=== PATIENT | male | born 1950 | race Caucasian/White ===

== ENCOUNTER 2016-11-14 19:02 | Emergency (ER) | payer OTHER ==
[~2016-11-14] VITALS: Ht 175.3 cm; Wt 108.3 kg
[~2016-11-14 19:02] MED LIST: ASPIR-LOW81 MG PO; HYDROCHLOROTH12.5 M3 PO; HYDROCODON-ACE1 EAC7 PO; LANTUS 3 M100 UNITS1 SC; LISINOPRIL10 MG PO; LOPRESSOR50 MG PO; METFORMIN HCL500 MG PO; METOPROLOL TART25 MG PO; NOHOMEMEDS; PANTOPRAZOLE SO40 MG PO; PLAVIX75 MG PO; PRAVASTATIN SOD40 MG PO; RESTORIL15 MG PO; TEMAZEPAM15 MG PO; TYLENOL EXTRA500 MG PO; VITAMIN D250000 UNIT PO; [UNRECOGNIZED DRUG - OTHER]
[2016-11-14 19:29] LABS: BASOPHIL COUNT 0.1 K/uL (0-0.1); EOSINOPHIL (%) 2.4 % (0-5); EOSINOPHIL COUNT 0.4 K/uL (0-0.3); HEMATOCRIT 35.8 % (38.0-50.0); IMMATURE GRANULOCYTE (%) 0.2 % (0.0-0.7); IMMATURE GRANULOCYTE COUNT 0.3 K/uL; LYMPHOCYTE COUNT 1.9 K/uL (1.0-2.8); MCHC 32.7 G/DL (30.0-36.0); MCV 82.5 FL (86-99); MEAN PLAT.VOLUME 10.2 uM^3 (9.0-12.4); MONOCYTE (%) 3.6 % (3-12); MONOCYTE COUNT 0.5 K/uL (0-0.8); NEUTROPHIL COUNT 12.3 K/uL (1.8-6.4); PLATELET COUNT 272 K/uL (156-360); RBC DIS.WIDTH-CV 13.9 % (11.8-14.6); RBC DIS.WIDTH-SD 40.7 % (39-53); RED BLOOD COUNT 4.34 M/uL (4.00-5.50); WHITE BLOOD COUNT 15.2 K/uL (4.1-10.2)
[2016-11-14 19:36] LABS: BASE EXCESS 0.8 mEq/L (-3 to +3); CARBOXY HGB 3.2 % (0-5); COMMENTS - BLOOD GASES C+A+; METHEMOGLOBIN 1.4 % (0-1.5); PCO2 43 mm Hg (35-45); PO2 136 mm Hg (80-100); SITE LR; pH 7.39 (7.35-7.45)
[2016-11-14 19:37] LABS: DEVICE 840 VENT; FI02 100 %; MODE SPONT/NIPPV; PEEP 5 CM/H20; PRES. SUPPORT 10 CM/H2O; TOTAL RESP RATE 37 resp/min
[2016-11-14 19:44] LABS: CHLORIDE 106 mEq/L (99-109); POTASSIUM 3.4 mEq/L (3.7-5.4); SODIUM 145 mEq/L (136-147)
[2016-11-14 19:46] LABS: GLUCOSE 184 mg/dL (70-99)
[2016-11-14 19:47] LABS: ANION GAP 16 MEQ/L (2-14)
[2016-11-14 19:48] LABS: TOTAL BILIRUBIN 0.5 mg/dL (0.0-1.0)
[2016-11-14 19:50] LABS: ALKALINE PHOSPHATASE 44 IU/L (3-129); GFR ESTIMATE (CALCULATED) 54 mL/min/
[2016-11-14 19:51] LABS: UREA NITROGEN (BUN) 17 mg/dL (9-23)
[2016-11-14 19:55] LABS: TROP-I INTERPRETATION NEGATIVE; TROPONIN-I 0.01 ng/mL (0.0-0.30)
[2016-11-14] MEDS ORDERED: ERGOCALCIF50000 UNIT PO (20:24)
[2016-11-14] MEDS ORDERED: CATAPRES0.1 MG PO (20:24)
[2016-11-14] MEDS ORDERED: CARDURA4 MG PO (20:25)
[2016-11-14] MEDS ORDERED: TRICOR145 MG PO (20:25)
[2016-11-14] MEDS ORDERED: SINEMET CR 50-1 EACH PO (20:27)
[2016-11-14] MEDS ORDERED: SINEMET 25-1001 EACH PO (20:27)
[2016-11-14] MEDS ORDERED: FISH OIL 1,001000 M2 PO (20:28)
[2016-11-14 23:12] LABS: INFLUENZA A VIRAL ANTIGEN NEGATIVE; INFLUENZA B VIRAL ANTIGEN NEGATIVE
[2016-11-14 23:30] VITALS: BP 127/84
== END 2016-11-15 04:15 | disposition short-term general hospital (02) ==
LOC: EME → EDBD 19:02 → EME 19:02
PROVIDERS: Emergency Medicine
DX: J96.00 Acute respiratory failure, unspecified whether with hypoxia or hypercapnia (principal); I50.9 Heart failure, unspecified; I16.1 Hypertensive emergency; D72.829 Elevated white blood cell count, unspecified; K21.9 Gastro-esophageal reflux disease without esophagitis; I69.998 Other sequelae following unspecified cerebrovascular disease; M62.81 Muscle weakness (generalized); G89.29 Other chronic pain; M54.2 Cervicalgia; E11.9 Type 2 diabetes mellitus without complications; Z79.84 Long term (current) use of oral hypoglycemic drugs; Z79.82 Long term (current) use of aspirin; Z79.4 Long term (current) use of insulin; Z79.02 Long term (current) use of antithrombotics/antiplatelets; F17.200 Nicotine dependence, unspecified, uncomplicated
CPT/HCPCS: 36600; 71010; 80053; 82803; 83605; 83880; 84484; 85025; 87040; 87502; 87801; 93005; 94002; J1940

== ENCOUNTER 2017-04-03 14:59 | Inpatient (IN) | payer OTHER ==
[~2017-04-03] VITALS: Ht 175.3 cm; Wt 96.1 kg
[~2017-04-03 14:59] MED LIST changes: +CARDURA4 MG PO; +CATAPRES0.1 MG PO; +ERGOCALCIF50000 UNIT PO; +FISH OIL 1,001000 M2 PO; +SINEMET 25-1001 EACH PO; +SINEMET CR 50-1 EACH PO; +TRICOR145 MG PO
[2017-04-03 16:04] LABS: BASOPHIL COUNT 0.1 K/uL (0-0.1); EOSINOPHIL (%) 1.1 % (0-5); EOSINOPHIL COUNT 0.2 K/uL (0-0.3); HEMATOCRIT 31.3 % (38.0-50.0); IMMATURE GRANULOCYTE (%) 0.5 % (0.0-0.7); IMMATURE GRANULOCYTE COUNT 0.1 K/uL; INSTRUMENT ABS NEUTROPHIL CT 15.8 K/uL; LYMPHOCYTE COUNT 1.6 K/uL (1.0-2.8); MCH 26.5 PG (29.0-34.0); MCHC 32.9 G/DL (30.0-36.0); MCV 80.5 FL (86-99); MEAN PLAT.VOLUME 9.5 uM^3 (9.0-12.4); MONOCYTE (%) 6.6 % (3-12); MONOCYTE COUNT 1.3 K/uL (0-0.8); NEUTROPHIL (%) 82.8 % (45-76); NEUTROPHIL COUNT 15.8 K/uL (1.8-6.4); PLATELET COUNT 290 K/uL (156-360); RBC DIS.WIDTH-CV 13.8 % (11.8-14.6); RBC DIS.WIDTH-SD 40.3 % (39-53); RED BLOOD COUNT 3.89 M/uL (4.00-5.50)
[2017-04-03 16:13] LABS: INTER. NORMALIZED RATIO 1.1; PTT 30.5 (25-32)
[2017-04-03 16:14] LABS: CHLORIDE 103 mEq/L (99-109); POTASSIUM 3.8 mEq/L (3.7-5.4); SODIUM 134 mEq/L (136-147)
[2017-04-03 16:15] LABS: MAGNESIUM 1.5 mg/dL (1.3-2.7)
[2017-04-03 16:16] LABS: GLUCOSE 139 mg/dL (70-99)
[2017-04-03 16:18] LABS: ANION GAP 7 MEQ/L (2-14)
[2017-04-03 16:20] LABS: GFR ESTIMATE (CALCULATED) > 59 mL/min/
[2017-04-03 16:21] LABS: UREA NITROGEN (BUN) 17 mg/dL (9-23)
[2017-04-03 16:24] LABS: TROP-I INTERPRETATION NEGATIVE; TROPONIN-I 0.02 ng/mL (0.0-0.30)
[2017-04-03 17:30] LABS: ADD MIUA? YES; BILIRUBIN NEGATIVE; BLOOD LARGE; COLOR YELLOW ((YELLOW)); GLUCOSE (STRIP) 50; KETONES 5; LEUKOCYTES LARGE; NITRITE NEGATIVE; PROTEIN (STRIP) 30; SPECIFIC GRAVITY 1.013 (1.000-1.030); UROBILINOGEN 0.2 MG/DL (0.2-1.0)
[2017-04-03 17:42] LABS: RED BLOOD CELLS TNTC /HPF (0-5)
[2017-04-03 17:44] LABS: BACTERIA 2+ /HPF; CASTS NONE SEEN /LPF; CRYSTALS NONE SEEN; EPITHELIAL CELLS RARE /HPF; MUCUS RARE /LPF; UCUL ADDED? YES; WHITE BLOOD CELLS TNTC /HPF (0-5)
[2017-04-03] MEDS ORDERED: METOPROLOL TART25 MG PO (18:57)
[2017-04-03] MEDS ORDERED: METFORMIN HCL500 M4 PO (19:00)
[2017-04-03] MEDS ORDERED: K-DUR10 MEQ PO (19:01)
[2017-04-03] MEDS ORDERED: LASIX20 MG PO (19:01)
[2017-04-03] MEDS ORDERED: DIOVAN80 MG PO (19:01)
[2017-04-03] MEDS ORDERED: FLOMAX0.4 MG PO (19:03)
[2017-04-03] MEDS ORDERED: VICODIN 5-3001 EACH PO (19:03)
[2017-04-03] MEDS ORDERED: AMBIEN5 MG PO (19:04)
[2017-04-03 20:29] VITALS: BP 146/81
[2017-04-03 23:55] VITALS: BP 132/60
[2017-04-04 03:51] VITALS: BP 132/70
[2017-04-04 07:22] VITALS: BP 139/77
[2017-04-04 08:15] LABS: POINT-OF-CARE METER ID UU14174225
[2017-04-04 11:14] VITALS: BP 138/72
[2017-04-04 13:59] LABS: Estimated Average Glucose 157 mg/dL (70-123); HEMOGLOBIN A1c (GLYCOHEMOGLOB) 7.1 % HGB (Below 5.7)
[2017-04-04 14:45] LABS: SAMPLE HEMOLYSIS CHECK 0; SAMPLE ICTERIC CHECK 0; SAMPLE LIPEMIA CHECK 0
[2017-04-04 14:50] LABS: HDL CHOLESTEROL 34 MG/DL (Desirable>=40); LDL CHOLESTEROL 121 mg/dL (Desirable<100); NON-HDL CHOLESTEROL 161 mg/dL (Desirable<160); TOTAL CHOLESTEROL 195 mg/dL (Desirable<200); TRIGLYCERIDES 201 MG/DL (Normal: <150)
[2017-04-04 15:18] VITALS: BP 132/60
[2017-04-04 16:51] LABS: POINT-OF-CARE METER ID UU14174225
[2017-04-04 20:07] VITALS: BP 111/68
[2017-04-04 22:06] LABS: POINT-OF-CARE METER ID UU13113717
[2017-04-04 23:56] VITALS: BP 114/59
[2017-04-05 03:57] VITALS: BP 159/88
[2017-04-05 08:06] VITALS: BP 149/91
[2017-04-05 11:48] LABS: POINT-OF-CARE METER ID UU14174225
[2017-04-05 12:00] VITALS: BP 139/77
[2017-04-05 20:08] VITALS: BP 131/71
[2017-04-06] VITALS (8 sets, daily range): BP systolic 102–180; BP diastolic 63–92
[2017-04-06 13:33] LABS: POINT-OF-CARE METER ID UU13113717
[2017-04-07 03:30] VITALS: BP 146/72
[2017-04-07 08:09] VITALS: BP 180/91
[2017-04-07 15:57] VITALS: BP 138/71
[2017-04-07 23:50] VITALS: BP 143/73
[2017-04-08 08:05] VITALS: BP 168/81
[2017-04-08 08:08] LABS: POINT-OF-CARE METER ID UU14174225
[2017-04-08 16:00] VITALS: BP 149/77
[2017-04-08 22:59] LABS: POINT-OF-CARE METER ID UU14174225
[2017-04-09 00:06] VITALS: BP 162/81
[2017-04-09 04:21] VITALS: BP 168/81
[2017-04-09 07:54] LABS: POINT-OF-CARE METER ID UU13113717
[2017-04-09 08:26] VITALS: BP 140/82
[2017-04-09 11:48] LABS: POINT-OF-CARE METER ID UU13113717
[2017-04-09 15:56] VITALS: BP 127/60
[2017-04-09 16:29] LABS: POINT-OF-CARE METER ID UU13113717
[2017-04-09 23:45] VITALS: BP 147/76
[2017-04-10 07:22] LABS: POINT-OF-CARE METER ID UU14188625
[2017-04-10 07:41] VITALS: BP 137/82
[2017-04-10 11:11] LABS: POINT-OF-CARE METER ID UU14188625
[2017-04-10 15:05] VITALS: BP 135/71
[2017-04-11 08:01] VITALS: BP 142/78
[2017-04-11 16:14] VITALS: BP 128/70
[2017-04-11 17:03] LABS: POINT-OF-CARE METER ID UU13113717
[2017-04-12 00:03] VITALS: BP 133/71
[2017-04-12 07:38] LABS: POINT-OF-CARE METER ID UU14174225
[2017-04-12 08:00] VITALS: BP 134/72
[2017-04-12 11:47] LABS: POINT-OF-CARE METER ID UU14174225
[2017-04-12 12:18] VITALS: BP 142/82
[2017-04-12 16:28] VITALS: BP 146/78
[2017-04-12 17:31] LABS: POINT-OF-CARE METER ID UU14174225
[2017-04-12 23:35] VITALS: BP 168/82
[2017-04-13 08:12] VITALS: BP 152/94
[2017-04-13 15:07] VITALS: BP 162/96
== END 2017-04-13 16:42 | DRG 689 ==
LOC: EME 14:59 → EDOF 17:55 → 5SOUTH 17:55
PROVIDERS: Emergency Medicine; Internal Medicine
DX: N39.0 Urinary tract infection, site not specified (principal); F17.200 Nicotine dependence, unspecified, uncomplicated; N40.0 Benign prostatic hyperplasia without lower urinary tract symptoms; I50.9 Heart failure, unspecified; I11.0 Hypertensive heart disease with heart failure; K21.9 Gastro-esophageal reflux disease without esophagitis; R53.1 Weakness; G93.89 Other specified disorders of brain; Z79.82 Long term (current) use of aspirin; E78.5 Hyperlipidemia, unspecified; I69.353 Hemiplegia and hemiparesis following cerebral infarction affecting right non-dominant side; D72.829 Elevated white blood cell count, unspecified; E11.9 Type 2 diabetes mellitus without complications; G20 Parkinson's disease; R65.11 Systemic inflammatory response syndrome (SIRS) of non-infectious origin with acute organ dysfunction
CPT/HCPCS: 70450; 70551; 71010; 80048; 80061; 81003; 82948; 83036; 83735; 84484; 85025; 85610; 85730; 87040; 87077; 87086; 87181; 87186; 93005; 97530 GO; 97530 GP; 99281; 99285; J0696; J0714; J1644; J1815; J2060; J7050

== ENCOUNTER 2017-04-18 16:47 | Inpatient (IN) | payer OTHER ==
[~2017-04-18] VITALS: Ht 175.3 cm; Wt 99.2 kg
[~2017-04-18 16:47] MED LIST changes: +AMBIEN5 MG PO; +DIOVAN80 MG PO; +FLOMAX0.4 MG PO; +K-DUR10 MEQ PO; +LASIX20 MG PO; +METFORMIN HCL500 M4 PO; +VICODIN 5-3001 EACH PO
[2017-04-18 17:26] LABS: BASOPHIL COUNT 0.1 K/uL (0-0.1); EOSINOPHIL (%) 5.4 % (0-5); EOSINOPHIL COUNT 0.7 K/uL (0-0.3); HEMATOCRIT 34.4 % (38.0-50.0); IMMATURE GRANULOCYTE (%) 0.5 % (0.0-0.7); IMMATURE GRANULOCYTE COUNT 0.1 K/uL; INSTRUMENT ABS NEUTROPHIL CT 9.5 K/uL; LYMPHOCYTE COUNT 1.7 K/uL (1.0-2.8); MCH 26.2 PG (29.0-34.0); MCHC 32.3 G/DL (30.0-36.0); MCV 81.3 FL (86-99); MEAN PLAT.VOLUME 9.5 uM^3 (9.0-12.4); MONOCYTE (%) 7.1 % (3-12); MONOCYTE COUNT 0.9 K/uL (0-0.8); NEUTROPHIL (%) 73.2 % (45-76); NEUTROPHIL COUNT 9.5 K/uL (1.8-6.4); PLATELET COUNT 331 K/uL (156-360); RBC DIS.WIDTH-CV 13.9 % (11.8-14.6); RBC DIS.WIDTH-SD 40.7 % (39-53); RED BLOOD COUNT 4.23 M/uL (4.00-5.50)
[2017-04-18 17:37] LABS: CHLORIDE 101 mEq/L (99-109); POTASSIUM 4.7 mEq/L (3.7-5.4); SODIUM 137 mEq/L (136-147)
[2017-04-18 17:38] LABS: GLUCOSE 112 mg/dL (70-99)
[2017-04-18 17:40] LABS: ANION GAP 12 MEQ/L (2-14)
[2017-04-18 17:42] LABS: GFR ESTIMATE (CALCULATED) 59 mL/min/
[2017-04-18 17:43] LABS: UREA NITROGEN (BUN) 27 mg/dL (9-23)
[2017-04-18 17:48] LABS: TROP-I INTERPRETATION NEGATIVE; TROPONIN-I 0.09 ng/mL (0.0-0.30)
[2017-04-18] MEDS ORDERED: MUCINEX1200 MG PO (20:27)
[2017-04-18] MEDS ORDERED: KLOR-CON SPRIN10 MEQ PO (20:29)
[2017-04-18 22:27] LABS: POINT-OF-CARE METER ID UU13113702
[2017-04-19 01:33] VITALS: BP 140/79
[2017-04-19 02:45] LABS: ADD MIUA? YES; BILIRUBIN NEGATIVE; BLOOD MODERATE; COLOR YELLOW ((YELLOW)); GLUCOSE (STRIP) 50; KETONES NEGATIVE; LEUKOCYTES NEGATIVE; NITRITE NEGATIVE; PROTEIN (STRIP) 30; SPECIFIC GRAVITY 1.034 (1.000-1.030); UROBILINOGEN 0.2 MG/DL (0.2-1.0)
[2017-04-19 02:52] LABS: BACTERIA NONE SEEN /HPF; EPITHELIAL CELLS RARE /HPF; MUCUS TRACE /LPF; UCUL ADDED? NO; WHITE BLOOD CELLS 0-5 /HPF (0-5)
[2017-04-19 03:29] LABS: METH RESISTANT S AUREUS PCR NEGATIVE (NEGATIVE)
[2017-04-19 03:32] LABS: PROBE CHECK PASS; SPECIMEN PROCESSING CONTROL PASS
[2017-04-19 06:07] LABS: POINT-OF-CARE METER ID UU13113725
[2017-04-19 06:36] LABS: HEMATOCRIT 31.5 % (38.0-50.0); MCH 26.4 PG (29.0-34.0); MCHC 31.7 G/DL (30.0-36.0); MCV 83.1 FL (86-99); MEAN PLAT.VOLUME 9.4 uM^3 (9.0-12.4); PLATELET COUNT 310 K/uL (156-360); RBC DIS.WIDTH-SD 42.7 % (39-53); RED BLOOD COUNT 3.79 M/uL (4.00-5.50); WHITE BLOOD COUNT 7.2 K/uL (4.1-10.2)
[2017-04-19 06:56] VITALS: BP 145/61
[2017-04-19 07:01] LABS: ALKALINE PHOSPHATASE 63 IU/L (3-129); ANION GAP 9 MEQ/L (2-14); CHLORIDE 101 MEQ/L (99-109); GFR ESTIMATE (CALCULATED) > 59 mL/min/; GLUCOSE 117 mg/dL (70-99); POTASSIUM 4.8 MEQ/L (3.7-5.4); SAMPLE HEMOLYSIS CHECK 0; SAMPLE ICTERIC CHECK 0; SAMPLE LIPEMIA CHECK 0; SODIUM 137 MEQ/L (136-147); TOTAL BILIRUBIN 0.4 MG/DL (0.0-1.0); UREA NITROGEN (BUN) 25 mg/dL (9-23)
[2017-04-19 07:42] LABS: Estimated Average Glucose 154 mg/dL (70-123)
[2017-04-19 15:05] VITALS: BP 122/59
[2017-04-19 20:28] VITALS: BP 129/70
[2017-04-19 23:30] VITALS: BP 157/74
[2017-04-20 06:55] VITALS: BP 141/82
[2017-04-20 07:04] LABS: GFR ESTIMATE (CALCULATED) > 59 mL/min/; UREA NITROGEN (BUN) 30 mg/dL (9-23)
[2017-04-20 15:00] VITALS: BP 151/68
[2017-04-20 23:03] VITALS: BP 142/66
[2017-04-21 06:42] LABS: EOSINOPHIL (%) 0 % (0-5); HEMATOCRIT 31.7 % (38.0-50.0); IMMATURE GRANULOCYTE (%) 0.9 % (0.0-0.7); IMMATURE GRANULOCYTE COUNT 0.1 K/uL; LYMPHOCYTE COUNT 1.8 K/uL (1.0-2.8); MCH 25.9 PG (29.0-34.0); MCHC 31.9 G/DL (30.0-36.0); MCV 81.3 FL (86-99); MEAN PLAT.VOLUME 9.3 uM^3 (9.0-12.4); MONOCYTE COUNT 0.9 K/uL (0-0.8); NEUTROPHIL (%) 77.9 % (45-76); PLATELET COUNT 365 K/uL (156-360); RBC DIS.WIDTH-CV 13.8 % (11.8-14.6); RBC DIS.WIDTH-SD 40.7 % (39-53); WHITE BLOOD COUNT 12.9 K/uL (4.1-10.2)
[2017-04-21 07:09] LABS: ANION GAP 10 MEQ/L (2-14); CHLORIDE 104 MEQ/L (99-109); GFR ESTIMATE (CALCULATED) > 59 mL/min/; GLUCOSE 140 mg/dL (70-99); POTASSIUM 4.4 MEQ/L (3.7-5.4); SAMPLE HEMOLYSIS CHECK 0; SAMPLE ICTERIC CHECK 0; SAMPLE LIPEMIA CHECK 0; SODIUM 139 MEQ/L (136-147); UREA NITROGEN (BUN) 33 mg/dL (9-23)
[2017-04-21 07:50] VITALS: BP 146/78
[2017-04-21 16:44] VITALS: BP 139/77
[2017-04-21 23:26] VITALS: BP 145/79
[2017-04-22 07:57] VITALS: BP 177/84
[2017-04-22] MEDS ORDERED: SPIRIVA RESPIMAT4 GM IH (15:05)
[2017-04-22] MEDS ORDERED: DUONEB 2.5-0.5 M3 ML AEROSOL (15:05)
[2017-04-22] MEDS ORDERED: HEPARIN SO5000 UNITS SC (15:05)
[2017-04-22] MEDS ORDERED: TYLENOL REGULA325 MG PO (15:06)
[2017-04-22] MEDS ORDERED: ADVAIR HFA120 INHALA IH (15:07)
[2017-04-22] MEDS ORDERED: PREDNISONE20 MG PO (15:08)
[2017-04-22 15:12] VITALS: BP 158/85
[2017-04-22 16:59] VITALS: BP 158/885
== END 2017-04-22 17:44 | DRG 190 ==
LOC: EME → EDBD 16:47 → EME 16:47 → EDOF 23:35 → 5EAST 23:35
PROVIDERS: Emergency Medicine; Internal Medicine
DX: J44.0 Chronic obstructive pulmonary disease with (acute) lower respiratory infection (principal); J96.01 Acute respiratory failure with hypoxia; I69.351 Hemiplegia and hemiparesis following cerebral infarction affecting right dominant side; J20.9 Acute bronchitis, unspecified; I11.0 Hypertensive heart disease with heart failure; G20 Parkinson's disease; E78.5 Hyperlipidemia, unspecified; E11.9 Type 2 diabetes mellitus without complications; I25.10 Atherosclerotic heart disease of native coronary artery without angina pectoris; N40.0 Benign prostatic hyperplasia without lower urinary tract symptoms; D64.9 Anemia, unspecified; R50.9 Fever, unspecified; E66.9 Obesity, unspecified; Z68.32 Body mass index [BMI] 32.0-32.9, adult; Z87.891 Personal history of nicotine dependence; J44.1 Chronic obstructive pulmonary disease with (acute) exacerbation; Z95.2 Presence of prosthetic heart valve; Z87.440 Personal history of urinary (tract) infections
CPT/HCPCS: 71010; 71275; 80048; 80053; 81003; 82565; 82948; 83036; 83605; 83880; 84484; 84520; 85025; 85027; 87040; 87070; 87077; 87081; 87205; 87641; 93005; 94640; 94640 76; 94760; 94799; 97530 GO; 97530 GP; 99202; 99281; 99285; J1644; J1815; J1956; J7030; J7512

== ENCOUNTER 2017-10-05 16:51 | Inpatient (IN) | payer OTHER ==
[~2017-10-05] VITALS: Ht 175.3 cm; Wt 108.6 kg
[~2017-10-05 16:51] MED LIST changes: +ADVAIR HFA120 INHALA IH; +DUONEB 2.5-0.5 M3 ML AEROSOL; +HEPARIN SO5000 UNITS SC; +KLOR-CON SPRIN10 MEQ PO; +MUCINEX1200 MG PO; +PREDNISONE20 MG PO; +SPIRIVA RESPIMAT4 GM IH; +TYLENOL REGULA325 MG PO
[2017-10-05 17:45] LABS: HEMATOCRIT 34.1 % (38.0-50.0); HEMOGLOBIN 11.3 G/DL (12.5-16.6); MCH 26.2 PG (29.0-34.0); MCHC 33.1 G/DL (30.0-36.0); MCV 79.1 FL (86-99); PLATELET COUNT 331 K/uL (156-360); RBC DIS.WIDTH-CV 15.4 % (11.8-14.6); RBC DIS.WIDTH-SD 43.6 % (39-53); RED BLOOD COUNT 4.31 M/uL (4.00-5.50); WHITE BLOOD COUNT 27.2 K/uL (4.1-10.2)
[2017-10-05 18:02] LABS: ALBUMIN 3.5 g/dL (3.2-4.8); CHLORIDE 102 mEq/L (99-109)
[2017-10-05 18:02] LABS: APPEARANCE TURBID ((CLEAR)); BILIRUBIN SMALL; BLOOD MODERATE; COLOR AMBER ((YELLOW)); GLUCOSE (STRIP) NEGATIVE; KETONES 5; LEUKOCYTES MODERATE; NITRITE NEGATIVE; PROTEIN (STRIP) 100; SPECIFIC GRAVITY 1.021 (1.000-1.030)
[2017-10-05 18:03] LABS: SODIUM 140 mEq/L (136-147)
[2017-10-05 18:05] LABS: GLUCOSE 206 mg/dL (70-99); TOTAL PROTEIN 7.1 g/dL (6.4-8.3)
[2017-10-05 18:07] LABS: TOTAL BILIRUBIN 0.5 mg/dL (0.0-1.0)
[2017-10-05 18:08] LABS: ALKALINE PHOSPHATASE 74 IU/L (3-129); CREATININE 2.3 mg/dL (0.6-1.3); GFR ESTIMATE (CALCULATED) 30 mL/min/ (58.99-99999)
[2017-10-05 18:10] LABS: AST (GOT) 21 IU/L (2-34); UREA NITROGEN (BUN) 45 mg/dL (9-23)
[2017-10-05 18:11] LABS: ALT (GPT) 3 IU/L (3-49)
[2017-10-05 18:20] LABS: BACTERIA 3+ /HPF; EPITHELIAL CELLS RARE /HPF; MUCUS NONE SEEN /LPF; UCUL ADDED? YES; WHITE BLOOD CELLS TNTC /HPF (0-5)
[2017-10-05] MEDS ORDERED: ADULT ASPIRIN R81 MG PO (21:21)
[2017-10-05] MEDS ORDERED: CLOPIDOGREL75 MG PO (21:21)
[2017-10-05] MEDS ORDERED: TRAMADOL HCL50 MG PO (21:21)
[2017-10-05] MEDS ORDERED: LISINOPRIL5 MG PO (21:21)
[2017-10-05] MEDS ORDERED: AMBIEN5 MG PO (21:21)
[2017-10-05] MEDS ORDERED: BETHANECHOL CHL25 MG PO (21:21)
[2017-10-05] MEDS ORDERED: METFORMIN HCL500 MG PO (21:21)
[2017-10-05] MEDS ORDERED: FLOMAX0.4 MG PO (21:21)
[2017-10-05] MEDS ORDERED: DIOVAN160 MG PO ×2 (21:22)
[2017-10-05] MEDS ORDERED: LOPRESSOR25 MG PO (21:22)
[2017-10-05] MEDS ORDERED: CARBIDOPA/LEVO1 EACH PO (21:22)
[2017-10-05] MEDS ORDERED: CARBIDOPA-LEVO1 EA16 PO (21:22)
[2017-10-05] MEDS ORDERED: ERGOCALCIF50000 UNIT PO (21:23)
[2017-10-05 23:30] VITALS: BP 137/67
[2017-10-06] VITALS (8 sets, daily range): BP systolic 96–145; BP diastolic 55–89
[2017-10-06 06:58] LABS: HEMATOCRIT 32.8 % (38.0-50.0); HEMOGLOBIN 10.2 G/DL (12.5-16.6); MCH 25.2 PG (29.0-34.0); MCHC 31.1 G/DL (30.0-36.0); MCV 81.2 FL (86-99); PLATELET COUNT 300 K/uL (156-360); RBC DIS.WIDTH-CV 15.6 % (11.8-14.6); RBC DIS.WIDTH-SD 45.9 % (39-53); RED BLOOD COUNT 4.04 M/uL (4.00-5.50); WHITE BLOOD COUNT 26.8 K/uL (4.1-10.2)
[2017-10-06 07:10] LABS: ALBUMIN 3.2 G/DL (3.2-4.8); ALKALINE PHOSPHATASE 69 IU/L (3-129); ALT (GPT) 4 IU/L (3-49); AST (GOT) 25 IU/L (2-34); CHLORIDE 104 MEQ/L (99-109); GFR ESTIMATE (CALCULATED) 36 mL/min/ (58.99-99999); GLUCOSE 194 mg/dL (70-99); POTASSIUM 3.7 MEQ/L (3.7-5.4); SODIUM 139 MEQ/L (136-147); TOTAL BILIRUBIN 0.5 MG/DL (0.0-1.0); UREA NITROGEN (BUN) 53 mg/dL (9-23)
[2017-10-07 01:37] VITALS: BP 108/60
[2017-10-07 04:01] VITALS: BP 122/60
[2017-10-07 06:18] LABS: HEMATOCRIT 31.8 % (38.0-50.0); HEMOGLOBIN 9.8 G/DL (12.5-16.6); MCH 25.3 PG (29.0-34.0); MCHC 30.8 G/DL (30.0-36.0); MCV 82.2 FL (86-99); PLATELET COUNT 291 K/uL (156-360); RBC DIS.WIDTH-CV 15.9 % (11.8-14.6); RBC DIS.WIDTH-SD 47.2 % (39-53); RED BLOOD COUNT 3.87 M/uL (4.00-5.50)
[2017-10-07 06:54] LABS: ALBUMIN 3.1 G/DL (3.2-4.8); ALKALINE PHOSPHATASE 75 IU/L (3-129); ALT (GPT) < 3 IU/L (3-49); AST (GOT) 22 IU/L (2-34); CHLORIDE 106 MEQ/L (99-109); GFR ESTIMATE (CALCULATED) 36 mL/min/ (58.99-99999); GLUCOSE 154 mg/dL (70-99); POTASSIUM 3.7 MEQ/L (3.7-5.4); SODIUM 140 MEQ/L (136-147); TOTAL BILIRUBIN 0.3 MG/DL (0.0-1.0); TOTAL PROTEIN 6.1 G/DL (6.4-8.3); UREA NITROGEN (BUN) 67 mg/dL (9-23)
[2017-10-07 07:36] VITALS: BP 142/67
[2017-10-07 16:47] VITALS: BP 157/77
[2017-10-07 20:29] VITALS: BP 138/79
[2017-10-08] VITALS: BP 114/63; BP 138/79
[2017-10-08 04:20] VITALS: BP 135/68
[2017-10-08 07:05] VITALS: BP 142/79
[2017-10-08 11:05] VITALS: BP 111/66
[2017-10-08 15:10] VITALS: BP 158/74
[2017-10-09 06:37] LABS: ALBUMIN 2.9 G/DL (3.2-4.8); CHLORIDE 108 MEQ/L (99-109); GFR ESTIMATE (CALCULATED) > 59 mL/min/ (58.99-99999); GLUCOSE 150 mg/dL (70-99); PHOSPHORUS 2.3 mg/dL (2.5-4.9); POTASSIUM 3.7 MEQ/L (3.7-5.4); SODIUM 142 MEQ/L (136-147); UREA NITROGEN (BUN) 47 mg/dL (9-23)
[2017-10-09 06:39] LABS: CREATININE 1.2 MG/DL (0.6-1.3)
[2017-10-09 09:04] VITALS: BP 152/84
[2017-10-09 12:11] VITALS: BP 148/79
[2017-10-09 17:20] VITALS: BP 141/68
[2017-10-09 23:55] VITALS: BP 142/66
[2017-10-10 06:36] LABS: ALBUMIN 2.7 G/DL (3.2-4.8); CHLORIDE 106 MEQ/L (99-109); GFR ESTIMATE (CALCULATED) > 59 mL/min/ (58.99-99999); GLUCOSE 149 mg/dL (70-99); PHOSPHORUS 2.1 mg/dL (2.5-4.9); POTASSIUM 3.6 MEQ/L (3.7-5.4); SODIUM 140 MEQ/L (136-147); UREA NITROGEN (BUN) 30 mg/dL (9-23)
[2017-10-10 07:33] VITALS: BP 192/93
[2017-10-10 16:20] VITALS: BP 150/75
[2017-10-10 23:16] VITALS: BP 132/75
[2017-10-11 06:50] LABS: ALBUMIN 2.6 G/DL (3.2-4.8); CHLORIDE 105 MEQ/L (99-109); GFR ESTIMATE (CALCULATED) > 59 mL/min/ (58.99-99999); GLUCOSE 148 mg/dL (70-99); PHOSPHORUS 2.3 mg/dL (2.5-4.9); POTASSIUM 3.5 MEQ/L (3.7-5.4); SODIUM 141 MEQ/L (136-147); UREA NITROGEN (BUN) 24 mg/dL (9-23)
[2017-10-11] MEDS ORDERED: LOSARTAN POTASS25 MG PO (08:04)
[2017-10-11] MEDS ORDERED: NIFEDIPINE ER30 MG PO (08:04)
[2017-10-11] MEDS ORDERED: BACTRIM,SEPT1 TABLE1 PO (08:04)
[2017-10-11 08:31] VITALS: BP 155/82
[2017-10-11 16:53] VITALS: BP 157/79
== END 2017-10-11 17:15 | DRG 683 ==
LOC: EME 16:51 → EDOF 21:18 → 5EAST 21:18 → ENRESERV 21:46 → 5EAST 23:07
PROVIDERS: Emergency Medicine; Internal Medicine; Internal Medicine Nephrology
DX: N17.9 Acute kidney failure, unspecified (principal); N39.0 Urinary tract infection, site not specified; I13.0 Hypertensive heart and chronic kidney disease with heart failure and stage 1 through stage 4 chronic kidney disease, or unspecified chronic kidney disease; I50.9 Heart failure, unspecified; N18.9 Chronic kidney disease, unspecified; I69.351 Hemiplegia and hemiparesis following cerebral infarction affecting right dominant side; E11.22 Type 2 diabetes mellitus with diabetic chronic kidney disease; D64.9 Anemia, unspecified; E53.8 Deficiency of other specified B group vitamins; E55.9 Vitamin D deficiency, unspecified; E78.5 Hyperlipidemia, unspecified; E86.0 Dehydration; G20 Parkinson's disease; I25.10 Atherosclerotic heart disease of native coronary artery without angina pectoris; I25.2 Old myocardial infarction; J45.909 Unspecified asthma, uncomplicated; K21.9 Gastro-esophageal reflux disease without esophagitis; M19.90 Unspecified osteoarthritis, unspecified site; N40.1 Benign prostatic hyperplasia with lower urinary tract symptoms; R33.9 Retention of urine, unspecified; Z87.440 Personal history of urinary (tract) infections; Z87.891 Personal history of nicotine dependence; Z95.2 Presence of prosthetic heart valve; N13.8 Other obstructive and reflux uropathy; N31.9 Neuromuscular dysfunction of bladder, unspecified; N39.498 Other specified urinary incontinence; R13.10 Dysphagia, unspecified; Z16.24 Resistance to multiple antibiotics
CPT/HCPCS: 71045; 74230; 76770; 80053; 80069; 81003; 82948; 83605; 85027; 87040; 87077; 87086 GA; 87186; 92610 GN; 92611 GN; 94799; 99281; 99285; C9113; J0692; J1815; J2405; J7030

== ENCOUNTER 2017-10-17 18:40 | Inpatient (IN) | payer OTHER ==
[~2017-10-17] VITALS: Ht 175.3 cm; Wt 95.2 kg
[~2017-10-17 18:40] MED LIST changes: +ADULT ASPIRIN R81 MG PO; +BACTRIM,SEPT1 TABLE1 PO; +BETHANECHOL CHL25 MG PO; +CARBIDOPA-LEVO1 EA16 PO; +CARBIDOPA/LEVO1 EACH PO; +CLOPIDOGREL75 MG PO; +DIOVAN160 MG PO; +LISINOPRIL5 MG PO; +LOPRESSOR25 MG PO; +LOSARTAN POTASS25 MG PO; +NIFEDIPINE ER30 MG PO; +TRAMADOL HCL50 MG PO
[2017-10-17 20:12] LABS: APPEARANCE TURBID ((CLEAR)); BILIRUBIN NEGATIVE; BLOOD MODERATE; GLUCOSE (STRIP) NEGATIVE; KETONES 5; LEUKOCYTES TRACE; NITRITE NEGATIVE; PROTEIN (STRIP) 100; SPECIFIC GRAVITY 1.024 (1.000-1.030)
[2017-10-17 20:15] LABS: BASOPHIL (%) 0.3 % (0-1); BASOPHIL COUNT 0.1 K/uL (0-0.1); EOSINOPHIL (%) 2.9 % (0-5); EOSINOPHIL COUNT 0.4 K/uL (0-0.3); HEMATOCRIT 29.9 % (38.0-50.0); HEMOGLOBIN 9.6 G/DL (12.5-16.6); IMMATURE GRANULOCYTE (%) 0.7 % (0.0-0.7); LYMPHOCYTE (%) 8.2 % (15-42); LYMPHOCYTE COUNT 1.2 K/uL (1.0-2.8); MCH 25.6 PG (29.0-34.0); MCHC 32.1 G/DL (30.0-36.0); MCV 79.7 FL (86-99); MONOCYTE (%) 7.1 % (3-12); MONOCYTE COUNT 1.1 K/uL (0-0.8); NEUTROPHIL (%) 80.8 % (45-76); NEUTROPHIL COUNT 11.9 K/uL (1.8-6.4); RBC DIS.WIDTH-CV 15.7 % (11.8-14.6); RBC DIS.WIDTH-SD 45.4 % (39-53); RED BLOOD COUNT 3.75 M/uL (4.00-5.50); WHITE BLOOD COUNT 14.7 K/uL (4.1-10.2)
[2017-10-17 20:16] LABS: PLATELET COUNT 414 K/uL (156-360)
[2017-10-17 20:17] LABS: COLOR DK YELLOW ((YELLOW))
[2017-10-17 20:25] LABS: ALBUMIN 3.3 g/dL (3.2-4.8); CHLORIDE 108 mEq/L (99-109); MAGNESIUM 1.8 mg/dL (1.3-2.7); POTASSIUM 3.2 mEq/L (3.7-5.4); SODIUM 144 mEq/L (136-147)
[2017-10-17 20:27] LABS: GLUCOSE 137 mg/dL (70-99); TOTAL PROTEIN 6.9 g/dL (6.4-8.3)
[2017-10-17 20:29] LABS: TOTAL BILIRUBIN 0.3 mg/dL (0.0-1.0)
[2017-10-17 20:31] LABS: ALKALINE PHOSPHATASE 106 IU/L (3-129); CREATININE 1.3 mg/dL (0.6-1.3); GFR ESTIMATE (CALCULATED) 59 mL/min/ (58.99-99999)
[2017-10-17 20:32] LABS: AST (GOT) 16 IU/L (2-34); UREA NITROGEN (BUN) 34 mg/dL (9-23)
[2017-10-17 20:34] LABS: ALT (GPT) 4 IU/L (3-49)
[2017-10-17 20:40] LABS: TROP-I INTERPRETATION NEGATIVE; TROPONIN-I < 0.01 ng/mL (0.0-0.30)
[2017-10-17 20:42] LABS: BACTERIA 3+ /HPF; EPITHELIAL CELLS 2+ /HPF; MUCUS 3+ /LPF; RED BLOOD CELLS 20-30 /HPF (0-5); UCUL ADDED? YES
[2017-10-17 20:46] LABS: COARSE GRANULAR CASTS 0-5 /LPF; HYALINE CASTS 0-5 /LPF; URIC ACID CRYSTALS 2+ /HPF
[2017-10-17 20:47] LABS: AMORPHOUS URATES CRYSTALS 2+
[2017-10-17] MEDS ORDERED: JANUVIA25 MG PO (22:02)
[2017-10-17] MEDS ORDERED: FLOMAX0.4 MG PO (22:03)
[2017-10-17] MEDS ORDERED: NIFEDIPINE ER30 MG PO (22:17)
[2017-10-17] MEDS ORDERED: LOSARTAN POTASS25 MG PO (22:17)
[2017-10-17] MEDS ORDERED: PLAVIX75 MG PO (22:21)
[2017-10-17] MEDS ORDERED: NOVOLOG PE100 UNITS/ SC (22:36)
[2017-10-17] MEDS ORDERED: TRAMADOL HCL50 MG PO (22:40)
[2017-10-18 00:22] LABS: C DIFF TOXIN POSITIVE (NEGATIVE)
[2017-10-18 13:25] VITALS: BP 133/77
[2017-10-18 21:00] VITALS: BP 128/58
[2017-10-19] VITALS (7 sets, daily range): BP systolic 115–140; BP diastolic 61–80
[2017-10-19 06:47] LABS: BASOPHIL (%) 0.3 % (0-1); EOSINOPHIL (%) 2.2 % (0-5); EOSINOPHIL COUNT 0.2 K/uL (0-0.3); HEMATOCRIT 27.3 % (38.0-50.0); HEMOGLOBIN 8.5 G/DL (12.5-16.6); IMMATURE GRANULOCYTE (%) 0.5 % (0.0-0.7); LYMPHOCYTE (%) 13.3 % (15-42); LYMPHOCYTE COUNT 1.2 K/uL (1.0-2.8); MCH 25.5 PG (29.0-34.0); MCHC 31.1 G/DL (30.0-36.0); MONOCYTE (%) 9.5 % (3-12); MONOCYTE COUNT 0.9 K/uL (0-0.8); NEUTROPHIL (%) 74.2 % (45-76); NEUTROPHIL COUNT 6.9 K/uL (1.8-6.4); PLATELET COUNT 437 K/uL (156-360); RBC DIS.WIDTH-CV 15.9 % (11.8-14.6); RBC DIS.WIDTH-SD 47.8 % (39-53); RED BLOOD COUNT 3.33 M/uL (4.00-5.50); WHITE BLOOD COUNT 9.3 K/uL (4.1-10.2)
[2017-10-19 07:45] LABS: ALBUMIN 2.7 G/DL (3.2-4.8); ALKALINE PHOSPHATASE 72 IU/L (3-129); ALT (GPT) 3 IU/L (3-49); AST (GOT) 13 IU/L (2-34); CHLORIDE 108 MEQ/L (99-109); CREATININE 1.1 MG/DL (0.6-1.3); GFR ESTIMATE (CALCULATED) > 59 mL/min/ (58.99-99999); GLUCOSE 126 mg/dL (70-99); POTASSIUM 3.3 MEQ/L (3.7-5.4); SODIUM 142 MEQ/L (136-147); TOTAL BILIRUBIN 0.3 MG/DL (0.0-1.0); TOTAL PROTEIN 5.6 G/DL (6.4-8.3); UREA NITROGEN (BUN) 32 mg/dL (9-23)
[2017-10-19 09:59] LABS: HEMOGLOBIN A1c (GLYCOHEMOGLOB) 8.1 % (Below 5.7)
[2017-10-20 04:42] VITALS: BP 130/71
[2017-10-20 06:29] LABS: HEMATOCRIT 26.2 % (38.0-50.0); HEMOGLOBIN 7.9 G/DL (12.5-16.6); MCH 24.8 PG (29.0-34.0); MCHC 30.2 G/DL (30.0-36.0); MCV 82.1 FL (86-99); NRBC (%) 0.4 /100 WBC (0-0); PLATELET COUNT 339 K/uL (156-360); RBC DIS.WIDTH-CV 15.9 % (11.8-14.6); RED BLOOD COUNT 3.19 M/uL (4.00-5.50); WHITE BLOOD COUNT 7.7 K/uL (4.1-10.2)
[2017-10-20 07:04] LABS: ALBUMIN 2.5 G/DL (3.2-4.8); ALKALINE PHOSPHATASE 64 IU/L (3-129); AST (GOT) 9 IU/L (2-34); CHLORIDE 109 MEQ/L (99-109); CREATININE 0.9 MG/DL (0.6-1.3); GFR ESTIMATE (CALCULATED) > 59 mL/min/ (58.99-99999); GLUCOSE 117 mg/dL (70-99); POTASSIUM 3.4 MEQ/L (3.7-5.4); SODIUM 138 MEQ/L (136-147); TOTAL BILIRUBIN 0.3 MG/DL (0.0-1.0); TOTAL PROTEIN 5.2 G/DL (6.4-8.3); UREA NITROGEN (BUN) 20 mg/dL (9-23)
[2017-10-20 07:06] LABS: ALT (GPT) < 3 IU/L (3-49)
[2017-10-20 08:20] VITALS: BP 150/70
[2017-10-20 16:00] VITALS: BP 144/75
[2017-10-20 20:55] VITALS: BP 148/78
[2017-10-21 01:10] VITALS: BP 142/74
[2017-10-21 06:51] LABS: HEMATOCRIT 25.7 % (38.0-50.0); HEMOGLOBIN 8.1 G/DL (12.5-16.6); MCH 25.3 PG (29.0-34.0); MCHC 31.5 G/DL (30.0-36.0); MCV 80.3 FL (86-99); PLATELET COUNT 437 K/uL (156-360); RBC DIS.WIDTH-CV 15.9 % (11.8-14.6); RBC DIS.WIDTH-SD 46.1 % (39-53); WHITE BLOOD COUNT 6.4 K/uL (4.1-10.2)
[2017-10-21 07:37] LABS: CHLORIDE 108 MEQ/L (99-109); CREATININE 0.8 MG/DL (0.6-1.3); GFR ESTIMATE (CALCULATED) > 59 mL/min/ (58.99-99999); GLUCOSE 140 mg/dL (70-99); POTASSIUM 3.3 MEQ/L (3.7-5.4); SODIUM 140 MEQ/L (136-147); UREA NITROGEN (BUN) 12 mg/dL (9-23)
[2017-10-21 08:00] VITALS: BP 136/70
[2017-10-21 16:02] VITALS: BP 142/76
[2017-10-22 00:10] VITALS: BP 138/72
[2017-10-22 07:00] VITALS: BP 138/72
[2017-10-22 18:30] VITALS: BP 138/68
[2017-10-23 00:08] VITALS: BP 133/64
[2017-10-23 07:20] LABS: CHLORIDE 106 MEQ/L (99-109); CREATININE 0.9 MG/DL (0.6-1.3); GFR ESTIMATE (CALCULATED) > 59 mL/min/ (58.99-99999); GLUCOSE 122 mg/dL (70-99); POTASSIUM 3.2 MEQ/L (3.7-5.4); SODIUM 138 MEQ/L (136-147); UREA NITROGEN (BUN) 7 mg/dL (9-23)
[2017-10-23 08:48] VITALS: BP 158/78
[2017-10-23 15:43] VITALS: BP 146/70
[2017-10-24 00:04] VITALS: BP 140/65
[2017-10-24 06:47] LABS: HEMATOCRIT 29.4 % (38.0-50.0); HEMOGLOBIN 9.3 G/DL (12.5-16.6); MCH 25.4 PG (29.0-34.0); MCHC 31.6 G/DL (30.0-36.0); MCV 80.3 FL (86-99); PLATELET COUNT 558 K/uL (156-360); RBC DIS.WIDTH-CV 15.9 % (11.8-14.6); RBC DIS.WIDTH-SD 45.9 % (39-53); RED BLOOD COUNT 3.66 M/uL (4.00-5.50); WHITE BLOOD COUNT 5.5 K/uL (4.1-10.2)
[2017-10-24 07:19] LABS: ABS NEUTROPHIL COUNT 3.6; ANISOCYTOSIS 1+; BAND NEUTROPHILS 8.8 % (0-8.0); BURR CELLS 1+; EOSINOPHIL ABS CT 0.2; EOSINOPHILS 4.4 % (0-5.0); LYMPHOCYTES 17.5 % (15.0-45.0); MICROCYTOSIS 1+; MONOCYTES 12.3 % (0-9.0); OVALOCYTES 1+; PLAT.SUFFICIENCY INCREASED
[2017-10-24 07:26] LABS: CHLORIDE 107 MEQ/L (99-109); CREATININE 0.9 MG/DL (0.6-1.3); GFR ESTIMATE (CALCULATED) > 59 mL/min/ (58.99-99999); GLUCOSE 118 mg/dL (70-99); POTASSIUM 3.5 MEQ/L (3.7-5.4); SODIUM 140 MEQ/L (136-147); UREA NITROGEN (BUN) 5 mg/dL (9-23)
[2017-10-24 08:00] VITALS: BP 140/80
[2017-10-24 16:27] VITALS: BP 140/66
[2017-10-25] VITALS: BP 107/56
[2017-10-25 08:19] VITALS: BP 164/76
[2017-10-25 16:57] VITALS: BP 140/72
[2017-10-26 00:04] VITALS: BP 149/69
[2017-10-26 08:00] VITALS: BP 132/64
[2017-10-26 23:52] VITALS: BP 138/78
[2017-10-27 07:50] VITALS: BP 132/76
[2017-10-27 16:20] VITALS: BP 140/80; BP 148/80
[2017-10-27 23:53] VITALS: BP 113/58
[2017-10-28 07:25] LABS: BASOPHIL (%) 0.8 % (0-1); BASOPHIL COUNT 0.1 K/uL (0-0.1); EOSINOPHIL COUNT 0.2 K/uL (0-0.3); HEMATOCRIT 33.7 % (38.0-50.0); HEMOGLOBIN 10.9 G/DL (12.5-16.6); IMMATURE GRANULOCYTE (%) 2.3 % (0.0-0.7); LYMPHOCYTE (%) 22.8 % (15-42); LYMPHOCYTE COUNT 1.4 K/uL (1.0-2.8); MCH 25.5 PG (29.0-34.0); MCHC 32.3 G/DL (30.0-36.0); MCV 78.7 FL (86-99); MONOCYTE (%) 10.9 % (3-12); MONOCYTE COUNT 0.7 K/uL (0-0.8); NEUTROPHIL (%) 59.2 % (45-76); NEUTROPHIL COUNT 3.6 K/uL (1.8-6.4); RBC DIS.WIDTH-CV 15.9 % (11.8-14.6); RBC DIS.WIDTH-SD 45.3 % (39-53); RED BLOOD COUNT 4.28 M/uL (4.00-5.50); WHITE BLOOD COUNT 6.1 K/uL (4.1-10.2)
[2017-10-28 07:31] LABS: ALBUMIN 2.5 G/DL (3.2-4.8); ALKALINE PHOSPHATASE 74 IU/L (3-129); AST (GOT) 9 IU/L (2-34); CHLORIDE 108 MEQ/L (99-109); CREATININE 0.9 MG/DL (0.6-1.3); GFR ESTIMATE (CALCULATED) > 59 mL/min/ (58.99-99999); GLUCOSE 118 mg/dL (70-99); POTASSIUM 3.4 MEQ/L (3.7-5.4); SODIUM 138 MEQ/L (136-147); TOTAL BILIRUBIN 0.2 MG/DL (0.0-1.0); TOTAL PROTEIN 5.2 G/DL (6.4-8.3); UREA NITROGEN (BUN) 6 mg/dL (9-23)
[2017-10-28 07:32] LABS: ALT (GPT) < 3 IU/L (3-49)
[2017-10-28 08:00] VITALS: BP 138/64
[2017-10-28 08:16] LABS: PLATELET CLUMPS PRESENT - PLATELET COUNT APPEARS ADQ.; PLATELET COUNT UNABLE TO REPORT K/uL (156-360)
[2017-10-28 23:41] VITALS: BP 128/70
[2017-10-29 08:08] VITALS: BP 114/68
[2017-10-29 15:58] VITALS: BP 124/60
[2017-10-29 23:30] VITALS: BP 131/82
[2017-10-30 07:24] LABS: BASOPHIL (%) 0.5 % (0-1); EOSINOPHIL (%) 4.3 % (0-5); EOSINOPHIL COUNT 0.3 K/uL (0-0.3); HEMATOCRIT 26.5 % (38.0-50.0); IMMATURE GRANULOCYTE (%) 1.2 % (0.0-0.7); LYMPHOCYTE (%) 22.9 % (15-42); LYMPHOCYTE COUNT 1.8 K/uL (1.0-2.8); MCH 25.2 PG (29.0-34.0); MCHC 31.3 G/DL (30.0-36.0); MCV 80.5 FL (86-99); MONOCYTE (%) 9.2 % (3-12); MONOCYTE COUNT 0.7 K/uL (0-0.8); NEUTROPHIL (%) 61.9 % (45-76); NEUTROPHIL COUNT 4.7 K/uL (1.8-6.4); RBC DIS.WIDTH-SD 46.7 % (39-53); WHITE BLOOD COUNT 7.7 K/uL (4.1-10.2)
[2017-10-30 07:29] LABS: HEMOGLOBIN 8.3 G/DL (12.5-16.6); PLATELET COUNT 466 K/uL (156-360); RED BLOOD COUNT 3.29 M/uL (4.00-5.50)
[2017-10-30 07:41] LABS: CHLORIDE 106 MEQ/L (99-109); CREATININE 0.9 MG/DL (0.6-1.3); GFR ESTIMATE (CALCULATED) > 59 mL/min/ (58.99-99999); GLUCOSE 107 mg/dL (70-99); SODIUM 133 MEQ/L (136-147); UREA NITROGEN (BUN) 7 mg/dL (9-23)
[2017-10-30 08:17] VITALS: BP 118/68
[2017-10-30 15:20] VITALS: BP 124/64
[2017-10-30 23:30] VITALS: BP 117/58
[2017-10-31 08:00] VITALS: BP 130/62
[2017-11-01 00:20] VITALS: BP 125/60
[2017-11-01 06:23] LABS: BASOPHIL (%) 0.6 % (0-1); EOSINOPHIL COUNT 0.3 K/uL (0-0.3); HEMATOCRIT 27.8 % (38.0-50.0); HEMOGLOBIN 8.6 G/DL (12.5-16.6); IMMATURE GRANULOCYTE (%) 0.7 % (0.0-0.7); LYMPHOCYTE (%) 26.6 % (15-42); LYMPHOCYTE COUNT 1.8 K/uL (1.0-2.8); MCH 25.4 PG (29.0-34.0); MCHC 30.9 G/DL (30.0-36.0); MONOCYTE (%) 9.7 % (3-12); MONOCYTE COUNT 0.7 K/uL (0-0.8); NEUTROPHIL (%) 58.4 % (45-76); NEUTROPHIL COUNT 3.9 K/uL (1.8-6.4); PLATELET COUNT 415 K/uL (156-360); RBC DIS.WIDTH-CV 16.2 % (11.8-14.6); RBC DIS.WIDTH-SD 48.2 % (39-53); RED BLOOD COUNT 3.39 M/uL (4.00-5.50); WHITE BLOOD COUNT 6.7 K/uL (4.1-10.2)
[2017-11-01 07:01] LABS: CHLORIDE 108 MEQ/L (99-109); CREATININE 0.8 MG/DL (0.6-1.3); GFR ESTIMATE (CALCULATED) > 59 mL/min/ (58.99-99999); GLUCOSE 106 mg/dL (70-99); SODIUM 134 MEQ/L (136-147); UREA NITROGEN (BUN) 7 mg/dL (9-23)
[2017-11-01 08:23] VITALS: BP 120/70
[2017-11-01 16:01] VITALS: BP 126/72
[2017-11-02 07:39] VITALS: BP 134/68
[2017-11-02 15:43] VITALS: BP 130/64
[2017-11-03 00:25] VITALS: BP 120/70
[2017-11-03 07:07] VITALS: BP 146/78
[2017-11-03 16:19] VITALS: BP 138/78
[2017-11-04 00:26] VITALS: BP 139/72
[2017-11-04 07:59] VITALS: BP 140/75
[2017-11-04 15:26] VITALS: BP 148/79
[2017-11-05 00:24] VITALS: BP 142/74
[2017-11-05 08:00] VITALS: BP 149/79
[2017-11-05 17:06] VITALS: BP 118/70
[2017-11-05 23:51] VITALS: BP 115/72
[2017-11-06 08:03] VITALS: BP 122/76
[2017-11-06 15:29] VITALS: BP 120/70
[2017-11-06 17:04] LABS: C DIFF TOXIN NEGATIVE (NEGATIVE)
[2017-11-07 00:04] VITALS: BP 129/66
[2017-11-07 07:54] LABS: CHLORIDE 109 MEQ/L (99-109); CREATININE 1.2 MG/DL (0.6-1.3); GFR ESTIMATE (CALCULATED) > 59 mL/min/ (58.99-99999); GLUCOSE 112 mg/dL (70-99); SODIUM 138 MEQ/L (136-147); UREA NITROGEN (BUN) 17 mg/dL (9-23)
[2017-11-07 08:18] VITALS: BP 118/74
[2017-11-07 16:00] VITALS: BP 133/61
[2017-11-07] MEDS ORDERED: FAMOTIDINE20 MG PO (18:31)
[2017-11-07] MEDS ORDERED: LOVENOX40 MG/0.4 SC (18:31)
[2017-11-07] MEDS ORDERED: DIFICID200 MG PO (18:31)
[2017-11-07] MEDS ORDERED: WELCHOL625 MG PO (18:31)
[2017-11-07 19:20] VITALS: BP 111/45
[2017-11-07 22:35] VITALS: BP 114/58
== END 2017-11-07 22:48 | DRG 872 ==
LOC: EME 18:40 → EDOF 22:12 → 4EAST 22:12 → ENRESERV 22:17 → 4EAST 10-18 15:00 → ENRESERV 10-20 01:31 → 2EAST 10-20 02:40
PROVIDERS: Internal Medicine; Physician Assistant Medical
DX: A41.9 Sepsis, unspecified organism (principal); A04.72 Enterocolitis due to Clostridium difficile, not specified as recurrent; N39.0 Urinary tract infection, site not specified; E86.0 Dehydration; I69.351 Hemiplegia and hemiparesis following cerebral infarction affecting right dominant side; E87.6 Hypokalemia; E78.5 Hyperlipidemia, unspecified; B96.1 Klebsiella pneumoniae [K. pneumoniae] as the cause of diseases classified elsewhere; E11.22 Type 2 diabetes mellitus with diabetic chronic kidney disease; I13.0 Hypertensive heart and chronic kidney disease with heart failure and stage 1 through stage 4 chronic kidney disease, or unspecified chronic kidney disease; G20 Parkinson's disease; D64.9 Anemia, unspecified; I50.9 Heart failure, unspecified; E55.9 Vitamin D deficiency, unspecified; E53.8 Deficiency of other specified B group vitamins; N40.1 Benign prostatic hyperplasia with lower urinary tract symptoms; Z87.440 Personal history of urinary (tract) infections; I25.2 Old myocardial infarction; Z95.2 Presence of prosthetic heart valve; N31.9 Neuromuscular dysfunction of bladder, unspecified; R26.9 Unspecified abnormalities of gait and mobility; I95.9 Hypotension, unspecified; K21.9 Gastro-esophageal reflux disease without esophagitis; T83.518A Infection and inflammatory reaction due to other urinary catheter, initial encounter; Y84.6 Urinary catheterization as the cause of abnormal reaction of the patient, or of later complication, without mention of misadventure at the time of the procedure; Z87.891 Personal history of nicotine dependence; Z16.24 Resistance to multiple antibiotics; N18.9 Chronic kidney disease, unspecified; J45.909 Unspecified asthma, uncomplicated
CPT/HCPCS: 71045; 80048; 80053; 80170; 81003; 82948; 83036; 83605; 83735; 84484; 85025; 85027; 87040; 87077; 87086; 87186; 87493; 87641; 93005; 94799; 97530 GO; 97530 GP; 99281; 99285; J0696; J1580; J1650; J1815; J2543; J3370; J3480; J7030; J7050; S0030

== ENCOUNTER 2017-12-01 10:52 | Inpatient (IN) | payer OTHER ==
[~2017-12-01] VITALS: Ht 175.3 cm; Wt 67.5 kg
[~2017-12-01 10:52] MED LIST changes: +DIFICID200 MG PO; +FAMOTIDINE20 MG PO; +JANUVIA25 MG PO; +LOVENOX40 MG/0.4 SC; +NOVOLOG PE100 UNITS/ SC; +WELCHOL625 MG PO
[2017-12-01 11:49] LABS: BASOPHIL (%) 0.2 % (0-1); EOSINOPHIL (%) 0 % (0-5); HEMATOCRIT 29.7 % (38.0-50.0); HEMOGLOBIN 9.8 G/DL (12.5-16.6); IMMATURE GRANULOCYTE (%) 0.8 % (0.0-0.7); LYMPHOCYTE (%) 7.3 % (15-42); LYMPHOCYTE COUNT 1.3 K/uL (1.0-2.8); MCH 25.9 PG (29.0-34.0); MCV 78.4 FL (86-99); MONOCYTE (%) 4.6 % (3-12); MONOCYTE COUNT 0.8 K/uL (0-0.8); NEUTROPHIL (%) 87.1 % (45-76); NEUTROPHIL COUNT 15.7 K/uL (1.8-6.4); PLATELET COUNT 607 K/uL (156-360); RBC DIS.WIDTH-CV 16.8 % (11.8-14.6); RBC DIS.WIDTH-SD 48.1 % (39-53); RED BLOOD COUNT 3.79 M/uL (4.00-5.50); WHITE BLOOD COUNT 18.1 K/uL (4.1-10.2)
[2017-12-01 11:57] LABS: INTER. NORMALIZED RATIO 1.7
[2017-12-01 11:58] LABS: CHLORIDE 107 mEq/L (99-109); POTASSIUM 2.9 mEq/L (3.7-5.4); SODIUM 139 mEq/L (136-147)
[2017-12-01 11:59] LABS: GLUCOSE 111 mg/dL (70-99)
[2017-12-01 12:03] LABS: CREATININE 4.3 mg/dL (0.6-1.3); GFR ESTIMATE (CALCULATED) 15 mL/min/ (58.99-99999)
[2017-12-01 12:04] LABS: UREA NITROGEN (BUN) 76 mg/dL (9-23)
[2017-12-01] MEDS ORDERED: AMBIEN5 MG PO (15:32)
[2017-12-01] MEDS ORDERED: ASPIRIN81 M2 PO (15:32)
[2017-12-01] MEDS ORDERED: FLOMAX0.4 MG PO (15:33)
[2017-12-01] MEDS ORDERED: COZAAR25 MG PO (15:35)
[2017-12-01] MEDS ORDERED: PLAVIX75 MG PO (15:37)
[2017-12-01] MEDS ORDERED: NIFEDIPINE ER30 MG PO (15:37)
[2017-12-01] MEDS ORDERED: CARBIDOPA/LEVO1 EACH PO (15:38)
[2017-12-01] MEDS ORDERED: STALEVO 200 TA1 EACH PO (15:39)
[2017-12-01] MEDS ORDERED: LOPRESSOR25 MG PO (15:40)
[2017-12-01] MEDS ORDERED: NOVOLOG PE100 UNITS/ SC (15:42)
[2017-12-01] MEDS ORDERED: PROBIOTIC1 EAC1 PO (15:43)
[2017-12-01] MEDS ORDERED: QUESTRAN PACKET4 GM PO (15:44)
[2017-12-01] MEDS ORDERED: TRAMADOL HCL50 MG PO ×2 (15:45→15:48)
[2017-12-01] MEDS ORDERED: WELCHOL625 MG PO (15:46)
[2017-12-01] MEDS ORDERED: URECHOLINE25 MG PO (15:46)
[2017-12-01] MEDS ORDERED: GLUCOSE GEL38 GM PO (15:47)
[2017-12-01] MEDS ORDERED: DUONEB 2.5-0.5 M3 ML AEROSOL (15:47)
[2017-12-01] MEDS ORDERED: TYLENOL REGULA325 MG PO (15:48)
[2017-12-01 17:30] LABS: APPEARANCE CLOUDY ((CLEAR)); BILIRUBIN NEGATIVE; BLOOD MODERATE; COLOR AMBER ((YELLOW)); GLUCOSE (STRIP) NEGATIVE; KETONES 5; LEUKOCYTES LARGE; NITRITE NEGATIVE; PROTEIN (STRIP) 30; UROBILINOGEN 0.2 MG/DL (0.2-1.0)
[2017-12-01 17:57] LABS: EPITHELIAL CELLS RARE /HPF; RED BLOOD CELLS RARE /HPF (0-5); WHITE BLOOD CELLS 20-30 /HPF (0-5)
[2017-12-01 17:58] LABS: BACTERIA 2+ /HPF; MUCUS NONE SEEN /LPF; UCUL ADDED? YES
[2017-12-01 20:45] VITALS: BP 123/57
[2017-12-01 22:30] VITALS: BP 123/59
[2017-12-02 03:30] VITALS: BP 90/52
[2017-12-02 06:04] LABS: BASOPHIL (%) 0.1 % (0-1); EOSINOPHIL (%) 0 % (0-5); HEMATOCRIT 25.4 % (38.0-50.0); HEMOGLOBIN 8.1 G/DL (12.5-16.6); IMMATURE GRANULOCYTE (%) 0.6 % (0.0-0.7); LYMPHOCYTE (%) 6.8 % (15-42); MCH 25.2 PG (29.0-34.0); MCHC 31.9 G/DL (30.0-36.0); MCV 79.1 FL (86-99); MONOCYTE (%) 5.5 % (3-12); MONOCYTE COUNT 0.8 K/uL (0-0.8); NEUTROPHIL COUNT 12.2 K/uL (1.8-6.4); PLATELET COUNT 546 K/uL (156-360); RBC DIS.WIDTH-CV 16.9 % (11.8-14.6); RBC DIS.WIDTH-SD 48.6 % (39-53); RED BLOOD COUNT 3.21 M/uL (4.00-5.50); WHITE BLOOD COUNT 14.1 K/uL (4.1-10.2)
[2017-12-02 06:24] LABS: ALBUMIN 2.5 G/DL (3.2-4.8); ALKALINE PHOSPHATASE 109 IU/L (3-129); AST (GOT) 11 IU/L (2-34); CHLORIDE 115 MEQ/L (99-109); CREATININE 4.6 MG/DL (0.6-1.3); GFR ESTIMATE (CALCULATED) 14 mL/min/ (58.99-99999); GLUCOSE 108 mg/dL (70-99); POTASSIUM 2.7 MEQ/L (3.7-5.4); SODIUM 140 MEQ/L (136-147); TOTAL BILIRUBIN 0.3 MG/DL (0.0-1.0); TOTAL PROTEIN 5.7 G/DL (6.4-8.3); UREA NITROGEN (BUN) 86 mg/dL (9-23)
[2017-12-02 06:26] LABS: ALT (GPT) < 3 IU/L (3-49)
[2017-12-02 08:36] VITALS: BP 100/61
[2017-12-02 10:59] VITALS: BP 124/65
[2017-12-02 13:38] LABS: BASE EXCESS -13.2 mEq/L (-3 to +3); BICARBONATE 10.7 mEq/L (22-26); CARBOXY HGB 1.5 % (0-5); METHEMOGLOBIN 1.1 % (0-1.5); PCO2 19 mm Hg (35-45); PO2 129 mm Hg (80-100); SITE LR +A; pH 7.36 (7.35-7.45)
[2017-12-02 13:39] LABS: COMMENTS - BLOOD GASES +C; DEVICE NC; O2 FLOW 2 L/MIN; TOTAL RESP RATE 20 resp/min
[2017-12-02 16:31] VITALS: BP 100/65
[2017-12-02 17:31] LABS: CHLORIDE 117 MEQ/L (99-109); CREATININE 4.7 MG/DL (0.6-1.3); GFR ESTIMATE (CALCULATED) 13 mL/min/ (58.99-99999); GLUCOSE 119 mg/dL (70-99); SODIUM 139 MEQ/L (136-147); UREA NITROGEN (BUN) 95 mg/dL (9-23)
[2017-12-02 20:16] VITALS: BP 122/57
[2017-12-02 23:38] VITALS: BP 126/61
[2017-12-03] VITALS (20 sets, daily range): BP systolic 83–122; BP diastolic 49–87
[2017-12-03 05:48] LABS: BASOPHIL (%) 0.1 % (0-1); EOSINOPHIL (%) 0 % (0-5); HEMATOCRIT 23.8 % (38.0-50.0); HEMOGLOBIN 7.6 G/DL (12.5-16.6); IMMATURE GRANULOCYTE (%) 0.7 % (0.0-0.7); LYMPHOCYTE (%) 6.7 % (15-42); LYMPHOCYTE COUNT 0.6 K/uL (1.0-2.8); MCHC 31.9 G/DL (30.0-36.0); MCV 78.3 FL (86-99); MONOCYTE (%) 4.8 % (3-12); MONOCYTE COUNT 0.5 K/uL (0-0.8); NEUTROPHIL (%) 87.7 % (45-76); NEUTROPHIL COUNT 8.4 K/uL (1.8-6.4); PLATELET COUNT 466 K/uL (156-360); RBC DIS.WIDTH-CV 16.7 % (11.8-14.6); RBC DIS.WIDTH-SD 47.8 % (39-53); RED BLOOD COUNT 3.04 M/uL (4.00-5.50); WHITE BLOOD COUNT 9.6 K/uL (4.1-10.2)
[2017-12-03 06:03] LABS: TROP-I INTERPRETATION NEGATIVE; TROPONIN-I 0.02 ng/mL (0.0-0.30)
[2017-12-03 06:25] LABS: ALBUMIN 2.2 G/DL (3.2-4.8); CHLORIDE 115 MEQ/L (99-109); CREATININE 4.9 MG/DL (0.6-1.3); GFR ESTIMATE (CALCULATED) 13 mL/min/ (58.99-99999); GLUCOSE 93 mg/dL (70-99); IRON 20 MCG/DL (35-150); PHOSPHORUS 4.4 mg/dL (2.5-4.9); POTASSIUM 3.3 MEQ/L (3.7-5.4); SODIUM 142 MEQ/L (136-147); TRANSFERRIN (TIBC) 105.3 mg/dL (215-380); TRANSFERRIN SATUR. 19 % (20-55); UREA NITROGEN (BUN) 98 mg/dL (9-23)
[2017-12-03 06:45] LABS: URIC ACID 11.9 mg/dL (3.1-9.2)
[2017-12-03 23:30] LABS: HEMATOCRIT 26.8 % (38.0-50.0); HEMOGLOBIN 8.9 G/DL (12.5-16.6); MCH 26.8 PG (29.0-34.0); MCHC 33.2 G/DL (30.0-36.0); MCV 80.7 FL (86-99); PLATELET COUNT 336 K/uL (156-360); RBC DIS.WIDTH-CV 17.2 % (11.8-14.6); RBC DIS.WIDTH-SD 50.9 % (39-53); RED BLOOD COUNT 3.32 M/uL (4.00-5.50)
[2017-12-03 23:39] LABS: CHLORIDE 116 mEq/L (99-109); POTASSIUM 3.2 mEq/L (3.7-5.4); SODIUM 143 mEq/L (136-147)
[2017-12-03 23:40] LABS: MAGNESIUM 1.5 mg/dL (1.3-2.7)
[2017-12-03 23:41] LABS: GLUCOSE 128 mg/dL (70-99)
[2017-12-03 23:45] LABS: CREATININE 4.5 mg/dL (0.6-1.3); GFR ESTIMATE (CALCULATED) 14 mL/min/ (58.99-99999)
[2017-12-03 23:46] LABS: UREA NITROGEN (BUN) 98 mg/dL (9-23)
[2017-12-04] VITALS (22 sets, daily range): BP systolic 0–151; BP diastolic 0–129
[2017-12-04 05:34] LABS: HEMATOCRIT 27.5 % (38.0-50.0); HEMOGLOBIN 8.9 G/DL (12.5-16.6); MCH 26.6 PG (29.0-34.0); MCHC 32.4 G/DL (30.0-36.0); MCV 82.1 FL (86-99); PLATELET COUNT 322 K/uL (156-360); RBC DIS.WIDTH-CV 17.4 % (11.8-14.6); RBC DIS.WIDTH-SD 51.9 % (39-53); RED BLOOD COUNT 3.35 M/uL (4.00-5.50); WHITE BLOOD COUNT 8.3 K/uL (4.1-10.2)
[2017-12-04 06:01] LABS: ALBUMIN 2.2 G/DL (3.2-4.8); CHLORIDE 120 MEQ/L (99-109); CREATININE 4.5 MG/DL (0.6-1.3); GFR ESTIMATE (CALCULATED) 14 mL/min/ (58.99-99999); GLUCOSE 122 mg/dL (70-99); PHOSPHORUS 4.9 mg/dL (2.5-4.9); POTASSIUM 3.5 MEQ/L (3.7-5.4); SODIUM 146 MEQ/L (136-147); UREA NITROGEN (BUN) 94 mg/dL (9-23)
[2017-12-04 10:47] LABS: C DIFF TOXIN NEGATIVE (NEGATIVE)
[2017-12-05] VITALS (8 sets, daily range): BP systolic 109–132; BP diastolic 61–80
[2017-12-05 05:30] LABS: BASOPHIL (%) 0.1 % (0-1); EOSINOPHIL COUNT 0.1 K/uL (0-0.3); HEMATOCRIT 25.4 % (38.0-50.0); HEMOGLOBIN 8.2 G/DL (12.5-16.6); IMMATURE GRANULOCYTE (%) 0.9 % (0.0-0.7); LYMPHOCYTE (%) 14.2 % (15-42); MCH 26.7 PG (29.0-34.0); MCHC 32.3 G/DL (30.0-36.0); MCV 82.7 FL (86-99); MONOCYTE (%) 11.6 % (3-12); MONOCYTE COUNT 0.8 K/uL (0-0.8); NEUTROPHIL (%) 72.2 % (45-76); NEUTROPHIL COUNT 4.9 K/uL (1.8-6.4); PLATELET COUNT 273 K/uL (156-360); RBC DIS.WIDTH-SD 53.9 % (39-53); RED BLOOD COUNT 3.07 M/uL (4.00-5.50); WHITE BLOOD COUNT 6.8 K/uL (4.1-10.2)
[2017-12-05 05:59] LABS: CHLORIDE 124 MEQ/L (99-109); GFR ESTIMATE (CALCULATED) 18 mL/min/ (58.99-99999); POTASSIUM 3.4 MEQ/L (3.7-5.4); SODIUM 149 MEQ/L (136-147); UREA NITROGEN (BUN) 76 mg/dL (9-23)
[2017-12-05 06:03] LABS: CREATININE 3.6 MG/DL (0.6-1.3); GLUCOSE 76 mg/dL (70-99)
[2017-12-06] VITALS (7 sets, daily range): BP systolic 103–131; BP diastolic 68–93
[2017-12-06 05:38] LABS: BASOPHIL (%) 0 % (0-1); EOSINOPHIL (%) 3.5 % (0-5); EOSINOPHIL COUNT 0.2 K/uL (0-0.3); HEMOGLOBIN 8.4 G/DL (12.5-16.6); LYMPHOCYTE (%) 15.9 % (15-42); LYMPHOCYTE COUNT 1.1 K/uL (1.0-2.8); MCH 27.1 PG (29.0-34.0); MCHC 32.3 G/DL (30.0-36.0); MCV 83.9 FL (86-99); MONOCYTE (%) 12.4 % (3-12); MONOCYTE COUNT 0.9 K/uL (0-0.8); NEUTROPHIL (%) 67.2 % (45-76); NEUTROPHIL COUNT 4.6 K/uL (1.8-6.4); PLATELET COUNT 257 K/uL (156-360); RBC DIS.WIDTH-CV 18.3 % (11.8-14.6); RBC DIS.WIDTH-SD 55.6 % (39-53); WHITE BLOOD COUNT 6.9 K/uL (4.1-10.2)
[2017-12-06 06:09] LABS: CHLORIDE 125 MEQ/L (99-109); GFR ESTIMATE (CALCULATED) 23 mL/min/ (58.99-99999); GLUCOSE 83 mg/dL (70-99); POTASSIUM 3.6 MEQ/L (3.7-5.4); SODIUM 152 MEQ/L (136-147); UREA NITROGEN (BUN) 54 mg/dL (9-23)
[2017-12-06 06:12] LABS: CREATININE 2.9 MG/DL (0.6-1.3)
[2017-12-06 07:45] LABS: POTASSIUM 3.3 MEQ/L (3.7-5.4)
[2017-12-06 14:18] LABS: STOOL OCCULT BLD 1ST SPECIMEN POSITIVE
[2017-12-06 16:34] LABS: CHLORIDE 121 MEQ/L (99-109); CREATININE 2.6 MG/DL (0.6-1.3); GFR ESTIMATE (CALCULATED) 26 mL/min/ (58.99-99999); POTASSIUM 3.2 MEQ/L (3.7-5.4); SODIUM 151 MEQ/L (136-147); UREA NITROGEN (BUN) 49 mg/dL (9-23)
[2017-12-06 16:35] LABS: GLUCOSE 140 mg/dL (70-99)
[2017-12-07 03:21] VITALS: BP 118/52
[2017-12-07 05:40] LABS: BASOPHIL (%) 0.1 % (0-1); EOSINOPHIL (%) 7.4 % (0-5); EOSINOPHIL COUNT 0.6 K/uL (0-0.3); HEMATOCRIT 25.5 % (38.0-50.0); LYMPHOCYTE (%) 20.6 % (15-42); LYMPHOCYTE COUNT 1.6 K/uL (1.0-2.8); MCH 26.4 PG (29.0-34.0); MCHC 31.4 G/DL (30.0-36.0); MCV 84.2 FL (86-99); MONOCYTE (%) 9.4 % (3-12); MONOCYTE COUNT 0.7 K/uL (0-0.8); NEUTROPHIL (%) 61.5 % (45-76); NEUTROPHIL COUNT 4.7 K/uL (1.8-6.4); PLATELET COUNT 263 K/uL (156-360); RBC DIS.WIDTH-CV 18.1 % (11.8-14.6); RBC DIS.WIDTH-SD 55.5 % (39-53); RED BLOOD COUNT 3.03 M/uL (4.00-5.50); WHITE BLOOD COUNT 7.7 K/uL (4.1-10.2)
[2017-12-07 06:09] LABS: CHLORIDE 126 MEQ/L (99-109); CREATININE 2.2 MG/DL (0.6-1.3); GFR ESTIMATE (CALCULATED) 32 mL/min/ (58.99-99999); GLUCOSE 110 mg/dL (70-99); SODIUM 150 MEQ/L (136-147); UREA NITROGEN (BUN) 40 mg/dL (9-23)
[2017-12-07 07:30] VITALS: BP 124/87
[2017-12-07 12:17] VITALS: BP 133/89
[2017-12-07 16:35] VITALS: BP 126/75
[2017-12-07 19:38] VITALS: BP 145/87
[2017-12-08 00:25] VITALS: BP 121/79
[2017-12-08 04:59] VITALS: BP 120/70
[2017-12-08 05:45] LABS: BASOPHIL (%) 0.1 % (0-1); EOSINOPHIL (%) 5.4 % (0-5); EOSINOPHIL COUNT 0.5 K/uL (0-0.3); HEMATOCRIT 24.7 % (38.0-50.0); HEMOGLOBIN 7.7 G/DL (12.5-16.6); IMMATURE GRANULOCYTE (%) 1.1 % (0.0-0.7); LYMPHOCYTE (%) 16.3 % (15-42); LYMPHOCYTE COUNT 1.5 K/uL (1.0-2.8); MCH 26.6 PG (29.0-34.0); MCHC 31.2 G/DL (30.0-36.0); MCV 85.2 FL (86-99); MONOCYTE (%) 7.4 % (3-12); MONOCYTE COUNT 0.7 K/uL (0-0.8); NEUTROPHIL (%) 69.7 % (45-76); NEUTROPHIL COUNT 6.3 K/uL (1.8-6.4); PLATELET COUNT 237 K/uL (156-360); RBC DIS.WIDTH-SD 55.9 % (39-53)
[2017-12-08 06:48] LABS: CHLORIDE 118 MEQ/L (99-109); GFR ESTIMATE (CALCULATED) 35 mL/min/ (58.99-99999); GLUCOSE 117 mg/dL (70-99); POTASSIUM 3.3 MEQ/L (3.7-5.4); SODIUM 145 MEQ/L (136-147); UREA NITROGEN (BUN) 32 mg/dL (9-23)
[2017-12-08 09:08] VITALS: BP 138/76
[2017-12-08 12:36] VITALS: BP 124/80
[2017-12-08 20:30] VITALS: BP 143/76
[2017-12-09 00:24] VITALS: BP 126/79
[2017-12-09 03:56] VITALS: BP 137/75
[2017-12-09 07:27] VITALS: BP 148/97
[2017-12-09 08:53] VITALS: BP 124/75
[2017-12-09] MEDS ORDERED: METRONIDAZOLE500 MG PO (09:14)
[2017-12-09] MEDS ORDERED: HEPARIN SO5000 UNIT4 SC (09:16)
[2017-12-09] MEDS ORDERED: SEROQUEL12.5 MG PO (09:18)
[2017-12-09] MEDS ORDERED: PROTONIX IV40 MG PO (09:20)
[2017-12-09] MEDS ORDERED: ONDANSETRON4 MG/2 ML PO (09:20)
== END 2017-12-09 12:57 | DRG 357 ==
LOC: EME 10:52 → 4WEST 13:00 → EDOF 13:00 → 4EAST 13:00 → ENRESERV 13:23 → 4EAST 20:31 → ENRESERV 12-03 16:32 → 4EAST 12-03 19:08 → 4WEST 12-03 20:11 → ENRESERV 12-04 17:29 → CANRESERV 12-04 17:29 → 4WEST 12-04 17:29 → ENRESERV 12-04 18:05 → CANRESERV 12-04 18:05 → 4WEST 12-05 18:42 → ENRESERV 12-06 19:25 → 4EAST 12-06 22:22
PROVIDERS: Emergency Medicine; Internal Medicine; Internal Medicine Cardiovascular Disease; Internal Medicine Critical Care Medicine; Internal Medicine Nephrology; Specialist; Surgery
PROC: 30233N1 Transfusion of Nonautologous Red Blood Cells into Peripheral Vein, Percutaneous Approach (ICD-10-PCS; principal; 2017-12-03)
PROC: 0WJP0ZZ Inspection of Gastrointestinal Tract, Open Approach (ICD-10-PCS; principal; 2017-12-03)
DX: K66.8 Other specified disorders of peritoneum (principal); N17.9 Acute kidney failure, unspecified; E87.6 Hypokalemia; E78.5 Hyperlipidemia, unspecified; L89.619 Pressure ulcer of right heel, unspecified stage; D69.6 Thrombocytopenia, unspecified; I69.351 Hemiplegia and hemiparesis following cerebral infarction affecting right dominant side; T83.518A Infection and inflammatory reaction due to other urinary catheter, initial encounter; E87.2 Acidosis; I13.0 Hypertensive heart and chronic kidney disease with heart failure and stage 1 through stage 4 chronic kidney disease, or unspecified chronic kidney disease; G20 Parkinson's disease; E53.8 Deficiency of other specified B group vitamins; N13.9 Obstructive and reflux uropathy, unspecified; N39.0 Urinary tract infection, site not specified; I71.4 Abdominal aortic aneurysm, without rupture; E87.5 Hyperkalemia; E86.0 Dehydration; E11.22 Type 2 diabetes mellitus with diabetic chronic kidney disease; N18.3 Chronic kidney disease, stage 3 (moderate); E55.9 Vitamin D deficiency, unspecified; R00.0 Tachycardia, unspecified; N40.1 Benign prostatic hyperplasia with lower urinary tract symptoms; N31.9 Neuromuscular dysfunction of bladder, unspecified; I95.9 Hypotension, unspecified; R13.10 Dysphagia, unspecified; E87.0 Hyperosmolality and hypernatremia; K27.9 Peptic ulcer, site unspecified, unspecified as acute or chronic, without hemorrhage or perforation; D62 Acute posthemorrhagic anemia; N18.9 Chronic kidney disease, unspecified; Z16.24 Resistance to multiple antibiotics; I50.9 Heart failure, unspecified; K21.9 Gastro-esophageal reflux disease without esophagitis; I25.10 Atherosclerotic heart disease of native coronary artery without angina pectoris; Y84.6 Urinary catheterization as the cause of abnormal reaction of the patient, or of later complication, without mention of misadventure at the time of the procedure; D47.3 Essential (hemorrhagic) thrombocythemia; K64.9 Unspecified hemorrhoids; D64.9 Anemia, unspecified; Z51.5 Encounter for palliative care; E86.1 Hypovolemia; D63.1 Anemia in chronic kidney disease; I35.0 Nonrheumatic aortic (valve) stenosis; M19.90 Unspecified osteoarthritis, unspecified site; K92.2 Gastrointestinal hemorrhage, unspecified; I25.2 Old myocardial infarction; Z96.0 Presence of urogenital implants; Z95.5 Presence of coronary angioplasty implant and graft; Z95.2 Presence of prosthetic heart valve; Z87.440 Personal history of urinary (tract) infections; Z86.19 Personal history of other infectious and parasitic diseases; Z87.891 Personal history of nicotine dependence
CPT/HCPCS: 36600; 70450; 71045; 74176; 76770; 80048; 80048 91; 80053; 80069; 80170; 81003; 82140; 82272; 82330; 82436; 82565; 82803; 82948; 83540; 83605; 83735; 84100; 84133; 84300; 84466; 84484; 84550; 84999; 85025; 85027; 85610; 86850; 86900; 86901; 86920; 87040; 87077; 87086; 87186; 87493; 87641; 92526 GN; 92610 GN; 93005; 93306; 94640; 94640 76; 94760; 94799; 97530 GO; 97530 GP; 99202; 99281; 99285; A6214; C1753; C9113; J0131; J0330; J0696; J1100; J1170; J1335; J1580; J1644; J1756; J1815; J2405; J2543; J3010; J3480; J7030; J7040; J7050; J7120; P9016

== ENCOUNTER 2017-12-15 18:11 | Inpatient (IN) | payer OTHER ==
[~2017-12-15] VITALS: Ht 175.3 cm; Wt 83.8 kg
[~2017-12-15 18:11] MED LIST changes: +ASPIRIN81 M2 PO; +COZAAR25 MG PO; +GLUCOSE GEL38 GM PO; +HEPARIN SO5000 UNIT4 SC; +METRONIDAZOLE500 MG PO; +ONDANSETRON4 MG/2 ML PO; +PROBIOTIC1 EAC1 PO; +PROTONIX IV40 MG PO; +QUESTRAN PACKET4 GM PO; +SEROQUEL12.5 MG PO; +STALEVO 200 TA1 EACH PO; +URECHOLINE25 MG PO
[2017-12-15 19:46] LABS: HEMATOCRIT 24.3 % (38.0-50.0); HEMOGLOBIN 7.9 G/DL (12.5-16.6); MCH 27.6 PG (29.0-34.0); MCHC 32.5 G/DL (30.0-36.0); PLATELET COUNT 334 K/uL (156-360); RBC DIS.WIDTH-SD 55.6 % (39-53); RED BLOOD COUNT 2.86 M/uL (4.00-5.50); WHITE BLOOD COUNT 4.5 K/uL (4.1-10.2)
[2017-12-15 19:57] LABS: ALBUMIN 2.3 g/dL (3.2-4.8); CHLORIDE 110 mEq/L (99-109); POTASSIUM 3.5 mEq/L (3.7-5.4); SODIUM 137 mEq/L (136-147)
[2017-12-15 20:00] LABS: GLUCOSE 112 mg/dL (70-99); TOTAL PROTEIN 5.6 g/dL (6.4-8.3)
[2017-12-15 20:02] LABS: TOTAL BILIRUBIN 0.2 mg/dL (0.0-1.0)
[2017-12-15 20:03] LABS: ALKALINE PHOSPHATASE 97 IU/L (3-129); CREATININE 1.3 mg/dL (0.6-1.3); GFR ESTIMATE (CALCULATED) 58 mL/min/ (58.99-99999); INTER. NORMALIZED RATIO 1.4
[2017-12-15 20:04] LABS: UREA NITROGEN (BUN) 14 mg/dL (9-23)
[2017-12-15 20:05] LABS: AST (GOT) 6 IU/L (2-34)
[2017-12-15 20:06] LABS: ALT (GPT) 4 IU/L (3-49); PTT 28.5 SEC (25-37)
[2017-12-15 20:07] LABS: LIPASE 10 U/L (1.0-51.0)
[2017-12-15 20:09] LABS: TROP-I INTERPRETATION NEGATIVE; TROPONIN-I < 0.01 ng/mL (0.0-0.30)
[2017-12-15 20:31] LABS: APPEARANCE TURBID ((CLEAR)); BILIRUBIN NEGATIVE; BLOOD SMALL; COLOR YELLOW ((YELLOW)); GLUCOSE (STRIP) NEGATIVE; KETONES NEGATIVE; LEUKOCYTES LARGE; NITRITE NEGATIVE; PROTEIN (STRIP) 30; SPECIFIC GRAVITY 1.014 (1.000-1.030); UROBILINOGEN 0.2 MG/DL (0.2-1.0)
[2017-12-15 20:50] LABS: BASOPHIL (%) 0.2 % (0-1); EOSINOPHIL (%) 2.9 % (0-5); EOSINOPHIL COUNT 0.1 K/uL (0-0.3); IMMATURE GRANULOCYTE (%) 0.7 % (0.0-0.7); LYMPHOCYTE (%) 22.4 % (15-42); MONOCYTE (%) 10.6 % (3-12); MONOCYTE COUNT 0.5 K/uL (0-0.8); NEUTROPHIL (%) 63.2 % (45-76); NEUTROPHIL COUNT 2.9 K/uL (1.8-6.4); PLAT.SUFFICIENCY ADEQUATE
[2017-12-15] MEDS ORDERED: LOTRISONE15 GM TP (20:56)
[2017-12-15] MEDS ORDERED: HEPARIN SO5000 UNIT3 SC (20:57)
[2017-12-15] MEDS ORDERED: IRON325 M1 PO (21:01)
[2017-12-15] MEDS ORDERED: PROTONIX40 MG PO (21:01)
[2017-12-15] MEDS ORDERED: CALCIUM 500 MG1 EACH PO (21:02)
[2017-12-15] MEDS ORDERED: VANCOMYCIN HCL125 MG PO (21:03)
[2017-12-15] MEDS ORDERED: ASPERCREME1 EACH TP (21:03)
[2017-12-15 21:22] LABS: RED BLOOD CELLS 0-5 /HPF (0-5)
[2017-12-15 21:23] LABS: WHITE BLOOD CELLS 30-40 /HPF (0-5)
[2017-12-15 21:24] LABS: BACTERIA 1+ /HPF; CALCIUM OXALATE CRYSTALS 2+ /HPF; EPITHELIAL CELLS RARE /HPF; UCUL ADDED? YES
[2017-12-15 21:25] LABS: MUCUS TRACE /LPF
[2017-12-16] VITALS (13 sets, daily range): BP systolic 102–152; BP diastolic 56–86
[2017-12-16 10:00] LABS: HEMOGLOBIN 9.7 G/DL (12.5-16.6); MCH 27.4 PG (29.0-34.0); MCHC 31.3 G/DL (30.0-36.0); MCV 87.6 FL (86-99); PLATELET COUNT 368 K/uL (156-360); RBC DIS.WIDTH-CV 17.2 % (11.8-14.6); RBC DIS.WIDTH-SD 55.5 % (39-53); WHITE BLOOD COUNT 4.4 K/uL (4.1-10.2)
[2017-12-16 10:08] LABS: RED BLOOD COUNT 3.54 M/uL (4.00-5.50)
[2017-12-16 10:31] LABS: ABS NEUTROPHIL COUNT 3.6; ANISOCYTOSIS 1+; ATYPICAL LYMPHOCYTE 4.5 %; BAND NEUTROPHILS 30.6 % (0-8.0); EOSINOPHIL ABS CT 0.2; EOSINOPHILS 4.5 % (0-5.0); LYMPHOCYTES 8.1 % (15.0-45.0); MACROCYTES 1+; MICROCYTOSIS 1+; MYELOCYTES 1.8 %; SEG.NEUTROPHILS 50.5 % (46.0-76.0); SMUDGE CELLS 15.3
[2017-12-17 00:18] VITALS: BP 122/68
[2017-12-17 03:48] VITALS: BP 133/74
[2017-12-17 07:44] LABS: HEMATOCRIT 28.9 % (38.0-50.0); HEMOGLOBIN 9.1 G/DL (12.5-16.6); MCH 27.2 PG (29.0-34.0); MCHC 31.5 G/DL (30.0-36.0); MCV 86.3 FL (86-99); PLATELET COUNT 312 K/uL (156-360); RED BLOOD COUNT 3.35 M/uL (4.00-5.50); WHITE BLOOD COUNT 4.7 K/uL (4.1-10.2)
[2017-12-17 08:00] VITALS: BP 132/79
[2017-12-17 08:18] LABS: CHLORIDE 111 MEQ/L (99-109); GFR ESTIMATE (CALCULATED) > 59 mL/min/ (58.99-99999); GLUCOSE 85 mg/dL (70-99); POTASSIUM 3.9 MEQ/L (3.7-5.4); SODIUM 140 MEQ/L (136-147); UREA NITROGEN (BUN) 12 mg/dL (9-23)
[2017-12-17 08:36] LABS: ABS NEUTROPHIL COUNT 3.5; ANISOCYTOSIS 1+; ATYPICAL LYMPHOCYTE 7.7 %; BAND NEUTROPHILS 19.7 % (0-8.0); BASOPHILS 0.8 %; EOSINOPHIL ABS CT 0.2; EOSINOPHILS 5.1 % (0-5.0); LYMPHOCYTES 7.7 % (15.0-45.0); MONOCYTES 3.4 % (0-9.0); OVALOCYTES 1+; PLAT.SUFFICIENCY ADEQUATE; SEG.NEUTROPHILS 55.6 % (46.0-76.0)
[2017-12-17 13:19] VITALS: BP 130/78
[2017-12-17 15:36] VITALS: BP 135/78
[2017-12-17 23:55] VITALS: BP 132/74
[2017-12-18 07:02] LABS: HEMATOCRIT 29.8 % (38.0-50.0); HEMOGLOBIN 9.5 G/DL (12.5-16.6); MCH 27.8 PG (29.0-34.0); MCHC 31.9 G/DL (30.0-36.0); MCV 87.1 FL (86-99); PLATELET COUNT 313 K/uL (156-360); RBC DIS.WIDTH-SD 54.5 % (39-53); RED BLOOD COUNT 3.42 M/uL (4.00-5.50); WHITE BLOOD COUNT 5.1 K/uL (4.1-10.2)
[2017-12-18 07:37] LABS: ALBUMIN 2.1 G/DL (3.2-4.8); ALKALINE PHOSPHATASE 80 IU/L (3-129); ALT (GPT) 4 IU/L (3-49); AST (GOT) < 7 IU/L (2-34); CHLORIDE 108 MEQ/L (99-109); CREATININE 1.1 MG/DL (0.6-1.3); GFR ESTIMATE (CALCULATED) > 59 mL/min/ (58.99-99999); GLUCOSE 81 mg/dL (70-99); POTASSIUM 3.6 MEQ/L (3.7-5.4); SODIUM 139 MEQ/L (136-147); TOTAL BILIRUBIN 0.2 MG/DL (0.0-1.0); TOTAL PROTEIN 4.8 G/DL (6.4-8.3); UREA NITROGEN (BUN) 12 mg/dL (9-23)
[2017-12-18 08:28] VITALS: BP 124/80
[2017-12-18 15:46] VITALS: BP 148/82
[2017-12-18 19:20] VITALS: BP 125/77
[2017-12-18 23:23] VITALS: BP 141/75
[2017-12-19 07:00] VITALS: BP 147/71
[2017-12-19 08:33] LABS: HEMATOCRIT 30.3 % (38.0-50.0); HEMOGLOBIN 9.6 G/DL (12.5-16.6); MCH 27.4 PG (29.0-34.0); MCHC 31.7 G/DL (30.0-36.0); MCV 86.3 FL (86-99); PLATELET COUNT 377 K/uL (156-360); RBC DIS.WIDTH-CV 16.9 % (11.8-14.6); RBC DIS.WIDTH-SD 53.1 % (39-53); RED BLOOD COUNT 3.51 M/uL (4.00-5.50); WHITE BLOOD COUNT 5.8 K/uL (4.1-10.2)
[2017-12-19 08:49] LABS: ALBUMIN 2.2 G/DL (3.2-4.8); ALKALINE PHOSPHATASE 85 IU/L (3-129); ALT (GPT) 5 IU/L (3-49); AST (GOT) 7 IU/L (2-34); CHLORIDE 109 MEQ/L (99-109); CREATININE 1.2 MG/DL (0.6-1.3); GFR ESTIMATE (CALCULATED) > 59 mL/min/ (58.99-99999); GLUCOSE 80 mg/dL (70-99); POTASSIUM 3.5 MEQ/L (3.7-5.4); SODIUM 138 MEQ/L (136-147); TOTAL PROTEIN 5.1 G/DL (6.4-8.3); UREA NITROGEN (BUN) 12 mg/dL (9-23)
[2017-12-19 09:11] LABS: TOTAL BILIRUBIN 0.3 MG/DL (0.0-1.0)
[2017-12-19 15:43] VITALS: BP 152/74
[2017-12-20 00:22] VITALS: BP 148/66
[2017-12-20 07:00] VITALS: BP 154/80
[2017-12-20 08:16] LABS: HEMATOCRIT 33.5 % (38.0-50.0); HEMOGLOBIN 10.6 G/DL (12.5-16.6); MCHC 31.6 G/DL (30.0-36.0); MCV 85.5 FL (86-99); PLATELET COUNT 399 K/uL (156-360); RBC DIS.WIDTH-CV 16.6 % (11.8-14.6); RBC DIS.WIDTH-SD 51.9 % (39-53); RED BLOOD COUNT 3.92 M/uL (4.00-5.50); WHITE BLOOD COUNT 7.4 K/uL (4.1-10.2)
[2017-12-20 09:04] LABS: ALBUMIN 2.3 G/DL (3.2-4.8); ALKALINE PHOSPHATASE 90 IU/L (3-129); ALT (GPT) 3 IU/L (3-49); AST (GOT) < 7 IU/L (2-34); CHLORIDE 106 MEQ/L (99-109); CREATININE 1.2 MG/DL (0.6-1.3); GFR ESTIMATE (CALCULATED) > 59 mL/min/ (58.99-99999); GLUCOSE 71 mg/dL (70-99); POTASSIUM 3.5 MEQ/L (3.7-5.4); SODIUM 140 MEQ/L (136-147); TOTAL BILIRUBIN 0.3 MG/DL (0.0-1.0); TOTAL PROTEIN 5.3 G/DL (6.4-8.3); UREA NITROGEN (BUN) 13 mg/dL (9-23)
[2017-12-20 15:23] VITALS: BP 140/78
[2017-12-21 00:32] VITALS: BP 114/73
[2017-12-21 06:17] LABS: BASOPHIL (%) 0.4 % (0-1); EOSINOPHIL (%) 3.2 % (0-5); EOSINOPHIL COUNT 0.2 K/uL (0-0.3); HEMATOCRIT 30.3 % (38.0-50.0); HEMOGLOBIN 9.7 G/DL (12.5-16.6); IMMATURE GRANULOCYTE (%) 1.1 % (0.0-0.7); LYMPHOCYTE (%) 21.5 % (15-42); LYMPHOCYTE COUNT 1.1 K/uL (1.0-2.8); MCH 27.7 PG (29.0-34.0); MCV 86.6 FL (86-99); MONOCYTE (%) 12.6 % (3-12); MONOCYTE COUNT 0.7 K/uL (0-0.8); NEUTROPHIL (%) 61.2 % (45-76); NEUTROPHIL COUNT 3.3 K/uL (1.8-6.4); PLATELET COUNT 409 K/uL (156-360); RBC DIS.WIDTH-CV 16.5 % (11.8-14.6); RBC DIS.WIDTH-SD 52.2 % (39-53); WHITE BLOOD COUNT 5.3 K/uL (4.1-10.2)
[2017-12-21 06:49] LABS: CHLORIDE 107 MEQ/L (99-109); CREATININE 1.3 MG/DL (0.6-1.3); GFR ESTIMATE (CALCULATED) 58 mL/min/ (58.99-99999); GLUCOSE 78 mg/dL (70-99); SODIUM 138 MEQ/L (136-147); UREA NITROGEN (BUN) 12 mg/dL (9-23)
[2017-12-21 07:31] VITALS: BP 128/70
[2017-12-21 14:44] VITALS: BP 103/58
[2017-12-22 00:08] VITALS: BP 125/58
[2017-12-22 06:03] LABS: HEMATOCRIT 32.3 % (38.0-50.0); MCH 27.2 PG (29.0-34.0); MCV 87.8 FL (86-99); PLATELET COUNT 405 K/uL (156-360); RBC DIS.WIDTH-CV 16.5 % (11.8-14.6); RBC DIS.WIDTH-SD 53.4 % (39-53); RED BLOOD COUNT 3.68 M/uL (4.00-5.50); WHITE BLOOD COUNT 4.8 K/uL (4.1-10.2)
[2017-12-22 06:23] LABS: CHLORIDE 114 MEQ/L (99-109); CREATININE 1.1 MG/DL (0.6-1.3); GFR ESTIMATE (CALCULATED) > 59 mL/min/ (58.99-99999); GLUCOSE 85 mg/dL (70-99); POTASSIUM 3.5 MEQ/L (3.7-5.4); SODIUM 141 MEQ/L (136-147); UREA NITROGEN (BUN) 8 mg/dL (9-23)
[2017-12-22 06:51] LABS: BASOPHIL (%) 0.8 % (0-1); EOSINOPHIL (%) 2.7 % (0-5); EOSINOPHIL COUNT 0.1 K/uL (0-0.3); IMMATURE GRANULOCYTE (%) 1.2 % (0.0-0.7); LYMPHOCYTE (%) 21.2 % (15-42); MONOCYTE (%) 9.6 % (3-12); MONOCYTE COUNT 0.5 K/uL (0-0.8); NEUTROPHIL (%) 64.5 % (45-76); NEUTROPHIL COUNT 3.1 K/uL (1.8-6.4)
[2017-12-22 09:17] VITALS: BP 130/78
[2017-12-22 15:36] VITALS: BP 138/76
[2017-12-23] VITALS: BP 123/57
[2017-12-23 07:23] VITALS: BP 145/95
[2017-12-23 07:25] LABS: BASOPHIL (%) 0.6 % (0-1); EOSINOPHIL (%) 3.2 % (0-5); EOSINOPHIL COUNT 0.2 K/uL (0-0.3); HEMATOCRIT 32.2 % (38.0-50.0); IMMATURE GRANULOCYTE (%) 1.3 % (0.0-0.7); LYMPHOCYTE (%) 20.6 % (15-42); LYMPHOCYTE COUNT 1.3 K/uL (1.0-2.8); MCH 27.1 PG (29.0-34.0); MCHC 31.1 G/DL (30.0-36.0); MCV 87.3 FL (86-99); MONOCYTE (%) 7.5 % (3-12); MONOCYTE COUNT 0.5 K/uL (0-0.8); NEUTROPHIL (%) 66.8 % (45-76); NEUTROPHIL COUNT 4.2 K/uL (1.8-6.4); PLATELET COUNT 459 K/uL (156-360); RBC DIS.WIDTH-CV 16.3 % (11.8-14.6); RBC DIS.WIDTH-SD 52.2 % (39-53); RED BLOOD COUNT 3.69 M/uL (4.00-5.50); WHITE BLOOD COUNT 6.3 K/uL (4.1-10.2)
[2017-12-23 07:41] LABS: CHLORIDE 113 MEQ/L (99-109); GFR ESTIMATE (CALCULATED) > 59 mL/min/ (58.99-99999); GLUCOSE 82 mg/dL (70-99); POTASSIUM 3.5 MEQ/L (3.7-5.4); SODIUM 140 MEQ/L (136-147); UREA NITROGEN (BUN) 5 mg/dL (9-23)
[2017-12-23 16:37] VITALS: BP 136/94
[2017-12-24 00:05] VITALS: BP 158/94
[2017-12-24 06:50] VITALS: BP 156/87
[2017-12-24 08:39] LABS: CHLORIDE 112 MEQ/L (99-109); GFR ESTIMATE (CALCULATED) > 59 mL/min/ (58.99-99999); GLUCOSE 78 mg/dL (70-99); POTASSIUM 3.7 MEQ/L (3.7-5.4); SODIUM 140 MEQ/L (136-147); UREA NITROGEN (BUN) 5 mg/dL (9-23)
[2017-12-24 17:36] VITALS: BP 131/71
[2017-12-25 00:15] VITALS: BP 126/67
[2017-12-25 06:15] VITALS: BP 146/72
[2017-12-25 08:38] LABS: CHLORIDE 111 MEQ/L (99-109); CREATININE 0.9 MG/DL (0.6-1.3); GFR ESTIMATE (CALCULATED) > 59 mL/min/ (58.99-99999); GLUCOSE 80 mg/dL (70-99); POTASSIUM 3.7 MEQ/L (3.7-5.4); SODIUM 139 MEQ/L (136-147); UREA NITROGEN (BUN) 5 mg/dL (9-23)
[2017-12-25 16:00] VITALS: BP 132/78
[2017-12-25 23:46] VITALS: BP 133/65
[2017-12-26 07:13] LABS: CHLORIDE 111 MEQ/L (99-109); CREATININE 0.9 MG/DL (0.6-1.3); GFR ESTIMATE (CALCULATED) > 59 mL/min/ (58.99-99999); GLUCOSE 80 mg/dL (70-99); POTASSIUM 3.7 MEQ/L (3.7-5.4); SODIUM 139 MEQ/L (136-147); UREA NITROGEN (BUN) 6 mg/dL (9-23)
[2017-12-26 10:02] VITALS: BP 137/80
[2017-12-26] MEDS ORDERED: VANCOMYCIN HCL125 MG PO (16:04)
[2017-12-26] MEDS ORDERED: FAMOTIDINE20 MG PO (16:06)
[2017-12-26] MEDS ORDERED: TYLENOL REGULA325 MG PO (16:07)
[2017-12-26 16:56] VITALS: BP 123/65
== END 2017-12-26 18:05 | DRG 178 ==
LOC: EME 18:11 → EDOF 21:40 → 2EAST 21:40 → ENRESERV 22:07 → 2EAST 12-16 01:01
PROVIDERS: Emergency Medicine; Family Medicine; Internal Medicine
PROC: 30233N1 Transfusion of Nonautologous Red Blood Cells into Peripheral Vein, Percutaneous Approach (ICD-10-PCS; 2017-12-16)
PROC: 3E1H88Z Irrigation of Lower GI using Irrigating Substance, Via Natural or Artificial Opening Endoscopic (ICD-10-PCS; principal; 2017-12-21)
DX: J69.0 Pneumonitis due to inhalation of food and vomit (principal); A04.71 Enterocolitis due to Clostridium difficile, recurrent; G20 Parkinson's disease; E78.5 Hyperlipidemia, unspecified; I69.351 Hemiplegia and hemiparesis following cerebral infarction affecting right dominant side; D64.9 Anemia, unspecified; E11.9 Type 2 diabetes mellitus without complications; N13.8 Other obstructive and reflux uropathy; Z95.2 Presence of prosthetic heart valve; I10 Essential (primary) hypertension; N31.9 Neuromuscular dysfunction of bladder, unspecified; Z74.01 Bed confinement status; F03.90 Unspecified dementia, unspecified severity, without behavioral disturbance, psychotic disturbance, mood disturbance, and anxiety; E66.9 Obesity, unspecified; Z68.27 Body mass index [BMI] 27.0-27.9, adult; K64.4 Residual hemorrhoidal skin tags; Z66 Do not resuscitate; Z87.440 Personal history of urinary (tract) infections; Z87.891 Personal history of nicotine dependence; N40.1 Benign prostatic hyperplasia with lower urinary tract symptoms
CPT/HCPCS: 71045; 74018; 74177; 80048; 80053; 80170; 81003; 82330; 82948; 83605; 83690; 84484; 85025; 85027; 85610; 85730; 86850; 86900; 86901; 86920; 87040; 87086 GA; 87106; 93971; 99202; 99281; 99285; C1755; J0456; J0696; J1580; J1815; J2270; J2543; J3370; J7050; P9016; P9040; S0030

== ENCOUNTER 2018-02-02 03:09 | Inpatient (IN) | payer OTHER ==
[~2018-02-02] VITALS: Ht 175.3 cm; Wt 81.3 kg
[~2018-02-02 03:09] MED LIST changes: +ASPERCREME1 EACH TP; +CALCIUM 500 MG1 EACH PO; +HEPARIN SO5000 UNIT3 SC; +IRON325 M1 PO; +LOTRISONE15 GM TP; +PROTONIX40 MG PO; +VANCOMYCIN HCL125 MG PO
[2018-02-02 03:43] LABS: HEMATOCRIT 28.9 % (38.0-50.0); HEMOGLOBIN 9.3 G/DL (12.5-16.6); MCH 27.9 PG (29.0-34.0); MCHC 32.2 G/DL (30.0-36.0); MCV 86.8 FL (86-99); PLATELET COUNT 457 K/uL (156-360); RBC DIS.WIDTH-CV 14.4 % (11.8-14.6); RBC DIS.WIDTH-SD 45.8 % (39-53); RED BLOOD COUNT 3.33 M/uL (4.00-5.50); WHITE BLOOD COUNT 10.4 K/uL (4.1-10.2)
[2018-02-02 03:49] LABS: INTER. NORMALIZED RATIO 1.2
[2018-02-02 03:51] LABS: PTT 30.3 SEC (25-37)
[2018-02-02 03:52] LABS: CHLORIDE 105 mEq/L (99-109); POTASSIUM 3.1 mEq/L (3.7-5.4); SODIUM 137 mEq/L (136-147)
[2018-02-02 03:54] LABS: TOTAL PROTEIN 6.3 g/dL (6.4-8.3)
[2018-02-02 03:56] LABS: TOTAL BILIRUBIN 0.2 mg/dL (0.0-1.0)
[2018-02-02 03:57] LABS: ALKALINE PHOSPHATASE 91 IU/L (3-129)
[2018-02-02 03:58] LABS: CREATININE 0.9 mg/dL (0.6-1.3); GFR ESTIMATE (CALCULATED) > 59 mL/min/ (58.99-99999)
[2018-02-02 03:59] LABS: AST (GOT) 6 IU/L (2-34); UREA NITROGEN (BUN) 20 mg/dL (9-23)
[2018-02-02 04:00] LABS: ALT (GPT) < 3 IU/L (3-49)
[2018-02-02 04:01] LABS: LIPASE 17 U/L (1.0-51.0)
[2018-02-02 04:02] LABS: TROP-I INTERPRETATION NEGATIVE; TROPONIN-I 0.02 ng/mL (0.0-0.30)
[2018-02-02 04:06] LABS: GLUCOSE 110 mg/dL (70-99)
[2018-02-02 08:30] VITALS: BP 154/82
[2018-02-02] MEDS ORDERED: KLOR-CON M2020 MEQ PO (09:33)
[2018-02-02] MEDS ORDERED: ERGOCALCIF50000 UNIT PO (09:34)
[2018-02-02] MEDS ORDERED: QUESTRAN PACKET4 GM PO (09:35)
[2018-02-02] MEDS ORDERED: FLORASTOR250 MG PO (09:36)
[2018-02-02] MEDS ORDERED: NEURONTIN100 MG PO (09:37)
[2018-02-02] MEDS ORDERED: ZOLOFT25 MG PO (09:39)
[2018-02-02] MEDS ORDERED: MELATONIN3 MG PO (09:40)
[2018-02-02] MEDS ORDERED: TYLENOL REGULA325 MG PO (09:41)
[2018-02-02 11:25] VITALS: BP 134/78
[2018-02-02 12:56] LABS: HEMATOCRIT 29.3 % (38.0-50.0); HEMOGLOBIN 8.9 G/DL (12.5-16.6); MCH 27.3 PG (29.0-34.0); MCHC 30.4 G/DL (30.0-36.0); MCV 89.9 FL (86-99); PLATELET COUNT 465 K/uL (156-360); RBC DIS.WIDTH-CV 14.4 % (11.8-14.6); RBC DIS.WIDTH-SD 46.7 % (39-53); RED BLOOD COUNT 3.26 M/uL (4.00-5.50); WHITE BLOOD COUNT 9.2 K/uL (4.1-10.2)
[2018-02-02 15:19] VITALS: BP 155/85
[2018-02-02 18:30] LABS: HEMOGLOBIN 9.6 G/DL (12.5-16.6); MCH 27.5 PG (29.0-34.0); MCV 88.8 FL (86-99); PLATELET COUNT 518 K/uL (156-360); RBC DIS.WIDTH-CV 14.5 % (11.8-14.6); RBC DIS.WIDTH-SD 46.3 % (39-53); RED BLOOD COUNT 3.49 M/uL (4.00-5.50); WHITE BLOOD COUNT 9.1 K/uL (4.1-10.2)
[2018-02-03 00:37] VITALS: BP 156/80
[2018-02-03 03:53] VITALS: BP 162/74
[2018-02-03 06:08] LABS: HEMATOCRIT 31.5 % (38.0-50.0); HEMOGLOBIN 9.9 G/DL (12.5-16.6); MCHC 31.4 G/DL (30.0-36.0); MCV 89.2 FL (86-99); PLATELET COUNT 505 K/uL (156-360); RBC DIS.WIDTH-CV 14.6 % (11.8-14.6); RBC DIS.WIDTH-SD 47.4 % (39-53); RED BLOOD COUNT 3.53 M/uL (4.00-5.50); WHITE BLOOD COUNT 9.4 K/uL (4.1-10.2)
[2018-02-03 06:29] LABS: ALBUMIN 2.9 G/DL (3.2-4.8); ALKALINE PHOSPHATASE 84 IU/L (3-129); ALT (GPT) 5 IU/L (3-49); AST (GOT) 7 IU/L (2-34); CHLORIDE 110 MEQ/L (99-109); CREATININE 0.8 MG/DL (0.6-1.3); GFR ESTIMATE (CALCULATED) > 59 mL/min/ (58.99-99999); GLUCOSE 89 mg/dL (70-99); SODIUM 143 MEQ/L (136-147); TOTAL PROTEIN 5.6 G/DL (6.4-8.3); UREA NITROGEN (BUN) 14 mg/dL (9-23)
[2018-02-03 06:32] LABS: TOTAL BILIRUBIN 0.3 MG/DL (0.0-1.0)
[2018-02-03 08:27] VITALS: BP 167/85
[2018-02-03 15:46] VITALS: BP 129/79
[2018-02-03 23:13] VITALS: BP 165/87
[2018-02-04 06:19] LABS: HEMATOCRIT 34.7 % (38.0-50.0); HEMOGLOBIN 10.9 G/DL (12.5-16.6); MCH 27.5 PG (29.0-34.0); MCHC 31.4 G/DL (30.0-36.0); MCV 87.6 FL (86-99); PLATELET COUNT 531 K/uL (156-360); RBC DIS.WIDTH-CV 14.3 % (11.8-14.6); RED BLOOD COUNT 3.96 M/uL (4.00-5.50)
[2018-02-04 08:17] VITALS: BP 185/82
[2018-02-04 09:54] LABS: C DIFF TOXIN NEGATIVE (NEGATIVE)
[2018-02-04 16:11] VITALS: BP 137/78
[2018-02-04 23:48] VITALS: BP 123/65
[2018-02-05 05:12] LABS: HEMATOCRIT 33.2 % (38.0-50.0); HEMOGLOBIN 10.5 G/DL (12.5-16.6); MCH 27.9 PG (29.0-34.0); MCHC 31.6 G/DL (30.0-36.0); MCV 88.1 FL (86-99); PLATELET COUNT 459 K/uL (156-360); RBC DIS.WIDTH-CV 14.5 % (11.8-14.6); RBC DIS.WIDTH-SD 46.6 % (39-53); RED BLOOD COUNT 3.77 M/uL (4.00-5.50); WHITE BLOOD COUNT 11.2 K/uL (4.1-10.2)
[2018-02-05 06:01] LABS: ALBUMIN 2.9 G/DL (3.2-4.8); ALKALINE PHOSPHATASE 71 IU/L (3-129); AST (GOT) 7 IU/L (2-34); CHLORIDE 108 MEQ/L (99-109); CREATININE 0.8 MG/DL (0.6-1.3); GFR ESTIMATE (CALCULATED) > 59 mL/min/ (58.99-99999); GLUCOSE 88 mg/dL (70-99); POTASSIUM 2.5 MEQ/L (3.7-5.4); SODIUM 141 MEQ/L (136-147); TOTAL PROTEIN 6.1 G/DL (6.4-8.3); UREA NITROGEN (BUN) 13 mg/dL (9-23)
[2018-02-05 06:08] LABS: ALT (GPT) < 3 IU/L (3-49); TOTAL BILIRUBIN 0.2 MG/DL (0.0-1.0)
[2018-02-05 08:11] VITALS: BP 182/97
[2018-02-05 16:41] VITALS: BP 133/60
[2018-02-05 23:29] VITALS: BP 170/75
[2018-02-06 00:30] VITALS: BP 130/68
[2018-02-06 06:06] LABS: HEMATOCRIT 31.5 % (38.0-50.0); HEMOGLOBIN 9.9 G/DL (12.5-16.6); MCH 27.3 PG (29.0-34.0); MCHC 31.4 G/DL (30.0-36.0); PLATELET COUNT 423 K/uL (156-360); RBC DIS.WIDTH-CV 14.4 % (11.8-14.6); RBC DIS.WIDTH-SD 45.6 % (39-53); RED BLOOD COUNT 3.62 M/uL (4.00-5.50); WHITE BLOOD COUNT 10.8 K/uL (4.1-10.2)
[2018-02-06 06:36] LABS: CHLORIDE 110 MEQ/L (99-109); CREATININE 0.8 MG/DL (0.6-1.3); GFR ESTIMATE (CALCULATED) > 59 mL/min/ (58.99-99999); GLUCOSE 91 mg/dL (70-99); SODIUM 141 MEQ/L (136-147); UREA NITROGEN (BUN) 13 mg/dL (9-23)
[2018-02-06 06:37] LABS: POTASSIUM 3.4 MEQ/L (3.7-5.4)
[2018-02-06 09:33] VITALS: BP 128/58
== END 2018-02-06 13:20 | DRG 394 ==
LOC: EME → EDBD 03:09 → EDOF 05:44 → 3EAST 05:44 → ENRESERV 05:46 → 3EAST 08:10
PROVIDERS: Emergency Medicine; Family Medicine; Internal Medicine
DX: K64.8 Other hemorrhoids (principal); K62.5 Hemorrhage of anus and rectum; I69.351 Hemiplegia and hemiparesis following cerebral infarction affecting right dominant side; F33.9 Major depressive disorder, recurrent, unspecified; N40.0 Benign prostatic hyperplasia without lower urinary tract symptoms; E53.8 Deficiency of other specified B group vitamins; L89.329 Pressure ulcer of left buttock, unspecified stage; L89.319 Pressure ulcer of right buttock, unspecified stage; L89.620 Pressure ulcer of left heel, unstageable; N31.9 Neuromuscular dysfunction of bladder, unspecified; I71.4 Abdominal aortic aneurysm, without rupture; E78.5 Hyperlipidemia, unspecified; G20 Parkinson's disease; E87.6 Hypokalemia; I11.0 Hypertensive heart disease with heart failure; I25.10 Atherosclerotic heart disease of native coronary artery without angina pectoris; D64.9 Anemia, unspecified; I50.9 Heart failure, unspecified; E55.9 Vitamin D deficiency, unspecified; N13.9 Obstructive and reflux uropathy, unspecified; J44.9 Chronic obstructive pulmonary disease, unspecified; G47.00 Insomnia, unspecified; N39.498 Other specified urinary incontinence; E11.9 Type 2 diabetes mellitus without complications; Z95.2 Presence of prosthetic heart valve; Z87.891 Personal history of nicotine dependence; Z79.82 Long term (current) use of aspirin; Z79.02 Long term (current) use of antithrombotics/antiplatelets; Z79.4 Long term (current) use of insulin; Z83.3 Family history of diabetes mellitus; Z82.49 Family history of ischemic heart disease and other diseases of the circulatory system
CPT/HCPCS: 80048; 80053; 83690; 84484; 85027; 85610; 85730; 86850; 86900; 86901; 87493; 93005; 99281; 99285; C9113; J7030; S0028

== ENCOUNTER 2018-03-04 12:30 | Emergency (ER) | payer OTHER ==
[~2018-03-04] VITALS: Ht 175.3 cm; Wt 75.1 kg
[~2018-03-04 12:30] MED LIST changes: +FLORASTOR250 MG PO; +KLOR-CON M2020 MEQ PO; +MELATONIN3 MG PO; +NEURONTIN100 MG PO; +ZOLOFT25 MG PO
[2018-03-04] MEDS ORDERED: BACTRIM,SEPT1 TABLET PO (12:51)
[2018-03-04 13:09] LABS: APPEARANCE SL.HAZY ((CLEAR)); BILIRUBIN NEGATIVE; BLOOD NEGATIVE; COLOR YELLOW ((YELLOW)); GLUCOSE (STRIP) NEGATIVE; KETONES NEGATIVE; LEUKOCYTES LARGE; NITRITE NEGATIVE; PROTEIN (STRIP) NEGATIVE; SPECIFIC GRAVITY 1.011 (1.000-1.030); UROBILINOGEN 0.2 MG/DL (0.2-1.0)
[2018-03-04 13:15] LABS: HEMATOCRIT 35.8 % (38.0-50.0); HEMOGLOBIN 11.7 G/DL (12.5-16.6); MCH 27.9 PG (29.0-34.0); MCHC 32.7 G/DL (30.0-36.0); MCV 85.4 FL (86-99); PLATELET COUNT 377 K/uL (156-360); RBC DIS.WIDTH-CV 13.9 % (11.8-14.6); RBC DIS.WIDTH-SD 43.4 % (39-53); RED BLOOD COUNT 4.19 M/uL (4.00-5.50); WHITE BLOOD COUNT 12.9 K/uL (4.1-10.2)
[2018-03-04 13:27] LABS: CHLORIDE 105 mEq/L (99-109); POTASSIUM 4.2 mEq/L (3.7-5.4); SODIUM 135 mEq/L (136-147)
[2018-03-04 13:29] LABS: GLUCOSE 92 mg/dL (70-99)
[2018-03-04 13:33] LABS: CREATININE 0.8 mg/dL (0.6-1.3); GFR ESTIMATE (CALCULATED) > 59 mL/min/ (58.99-99999); UREA NITROGEN (BUN) 16 mg/dL (9-23)
[2018-03-04 13:39] LABS: BACTERIA 2+ /HPF; EPITHELIAL CELLS RARE /HPF; MUCUS NONE SEEN /LPF; RED BLOOD CELLS NONE SEEN /HPF (0-5); UCUL ADDED? YES; WHITE BLOOD CELLS TNTC /HPF (0-5)
[2018-03-04 15:43] VITALS: BP 124/74
== END 2018-03-04 15:46 | disposition home or self-care (01) ==
LOC: EME 12:30
PROVIDERS: Emergency Medicine Emergency Medical Services
PROC: 0T2BX0Z Change Drainage Device in Bladder, External Approach (ICD-10-PCS; principal; 2018-03-04)
DX: Z46.6 Encounter for fitting and adjustment of urinary device (principal); N39.0 Urinary tract infection, site not specified; G20 Parkinson's disease; I13.0 Hypertensive heart and chronic kidney disease with heart failure and stage 1 through stage 4 chronic kidney disease, or unspecified chronic kidney disease; I50.9 Heart failure, unspecified; N18.9 Chronic kidney disease, unspecified; K21.9 Gastro-esophageal reflux disease without esophagitis; I25.10 Atherosclerotic heart disease of native coronary artery without angina pectoris; J44.9 Chronic obstructive pulmonary disease, unspecified; E78.5 Hyperlipidemia, unspecified; N40.0 Benign prostatic hyperplasia without lower urinary tract symptoms; I25.2 Old myocardial infarction; F32.9 Major depressive disorder, single episode, unspecified; Z87.891 Personal history of nicotine dependence; Z86.73 Personal history of transient ischemic attack (TIA), and cerebral infarction without residual deficits; Z87.440 Personal history of urinary (tract) infections; Z90.49 Acquired absence of other specified parts of digestive tract
CPT/HCPCS: 80048; 81003; 85027; 87077; 87086; 87186; 99281; 99284

== ENCOUNTER 2018-03-08 11:34 | Inpatient (IN) | payer OTHER ==
[~2018-03-08] VITALS: Ht 175.3 cm; Wt 72.5 kg
[~2018-03-08 11:34] MED LIST changes: +BACTRIM,SEPT1 TABLET PO
[2018-03-08 12:17] LABS: HEMATOCRIT 39.2 % (38.0-50.0); HEMOGLOBIN 12.8 G/DL (12.5-16.6); MCH 28.1 PG (29.0-34.0); MCHC 32.7 G/DL (30.0-36.0); MCV 86.2 FL (86-99); PLATELET COUNT 439 K/uL (156-360); RBC DIS.WIDTH-CV 14.3 % (11.8-14.6); RBC DIS.WIDTH-SD 45.1 % (39-53); RED BLOOD COUNT 4.55 M/uL (4.00-5.50); WHITE BLOOD COUNT 8.1 K/uL (4.1-10.2)
[2018-03-08 12:25] LABS: CHLORIDE 107 mEq/L (99-109); POTASSIUM 3.6 mEq/L (3.7-5.4); SODIUM 141 mEq/L (136-147)
[2018-03-08 12:27] LABS: GLUCOSE 125 mg/dL (70-99)
[2018-03-08 12:28] LABS: TOTAL PROTEIN 7.9 g/dL (6.4-8.3)
[2018-03-08 12:29] LABS: TOTAL BILIRUBIN 0.4 mg/dL (0.0-1.0)
[2018-03-08 12:31] LABS: ALKALINE PHOSPHATASE 103 IU/L (3-129); CREATININE 1.2 mg/dL (0.6-1.3); GFR ESTIMATE (CALCULATED) > 59 mL/min/ (58.99-99999)
[2018-03-08 12:33] LABS: AST (GOT) 6 IU/L (2-34); UREA NITROGEN (BUN) 29 mg/dL (9-23)
[2018-03-08 12:34] LABS: ALT (GPT) < 3 IU/L (3-49)
[2018-03-08] MEDS ORDERED: CLOPIDOGREL75 MG PO (15:24)
[2018-03-08] MEDS ORDERED: CARBIDOPA-LEVO1 EAC8 PO (15:24)
[2018-03-08] MEDS ORDERED: METRONIDAZOLE500 MG PO (15:25)
[2018-03-08 15:28] LABS: APPEARANCE CLOUDY ((CLEAR)); BILIRUBIN NEGATIVE; BLOOD SMALL; COLOR YELLOW ((YELLOW)); GLUCOSE (STRIP) NEGATIVE; KETONES 5; LEUKOCYTES LARGE; NITRITE NEGATIVE; PROTEIN (STRIP) 100; SPECIFIC GRAVITY 1.026 (1.000-1.030); UROBILINOGEN 0.2 MG/DL (0.2-1.0)
[2018-03-08 15:35] LABS: BACTERIA 1+ /HPF; CALCIUM OXALATE CRYSTALS 3+ /HPF; EPITHELIAL CELLS NONE SEEN /HPF; HYALINE CASTS 0-5 /LPF; MUCUS TRACE /LPF; RED BLOOD CELLS TNTC /HPF (0-5); UCUL ADDED? YES; WHITE BLOOD CELLS TNTC /HPF (0-5)
[2018-03-08 18:38] VITALS: BP 141/71
[2018-03-08 19:52] VITALS: BP 138/65
[2018-03-08 22:36] LABS: HEMATOCRIT 32.9 % (38.0-50.0); MCV 86.8 FL (86-99)
[2018-03-08 22:39] LABS: HEMOGLOBIN 10.5 G/DL (12.5-16.6)
[2018-03-08 23:32] VITALS: BP 125/62
[2018-03-09] VITALS (7 sets, daily range): BP systolic 116–144; BP diastolic 66–77
[2018-03-09 06:32] LABS: CHLORIDE 112 MEQ/L (99-109); GFR ESTIMATE (CALCULATED) > 59 mL/min/ (58.99-99999); SODIUM 140 MEQ/L (136-147); UREA NITROGEN (BUN) 26 mg/dL (9-23)
[2018-03-09 06:33] LABS: GLUCOSE 239 mg/dL (70-99); POTASSIUM 4.5 MEQ/L (3.7-5.4)
[2018-03-09 14:47] LABS: HEMATOCRIT 33.4 % (38.0-50.0); HEMOGLOBIN 10.4 G/DL (12.5-16.6); MCV 87.9 FL (86-99)
[2018-03-09 18:10] LABS: HEMATOCRIT 34.7 % (38.0-50.0); HEMOGLOBIN 10.8 G/DL (12.5-16.6); MCV 88.1 FL (86-99)
[2018-03-09 18:58] LABS: INTER. NORMALIZED RATIO 1.1
[2018-03-09 19:01] LABS: PTT 28.8 SEC (25-37)
[2018-03-10 00:43] LABS: HEMATOCRIT 32.3 % (38.0-50.0); HEMOGLOBIN 10.5 G/DL (12.5-16.6); MCV 87.1 FL (86-99)
[2018-03-10 03:37] VITALS: BP 110/55
[2018-03-10 06:10] LABS: HEMATOCRIT 32.1 % (38.0-50.0); MCH 27.1 PG (29.0-34.0); MCHC 31.2 G/DL (30.0-36.0); PLATELET COUNT 318 K/uL (156-360); RBC DIS.WIDTH-CV 14.2 % (11.8-14.6); RBC DIS.WIDTH-SD 45.1 % (39-53); RED BLOOD COUNT 3.69 M/uL (4.00-5.50); WHITE BLOOD COUNT 7.2 K/uL (4.1-10.2)
[2018-03-10 06:43] LABS: CHLORIDE 111 MEQ/L (99-109); CREATININE 0.9 MG/DL (0.6-1.3); GFR ESTIMATE (CALCULATED) > 59 mL/min/ (58.99-99999); GLUCOSE 119 mg/dL (70-99); POTASSIUM 3.5 MEQ/L (3.7-5.4); SODIUM 138 MEQ/L (136-147); UREA NITROGEN (BUN) 21 mg/dL (9-23)
[2018-03-10 07:25] VITALS: BP 118/74
[2018-03-10 08:26] LABS: C DIFF TOXIN POSITIVE (NEGATIVE)
[2018-03-10 12:28] VITALS: BP 120/84
[2018-03-10 16:51] VITALS: BP 122/86
[2018-03-10 16:52] LABS: HEMATOCRIT 36.9 % (38.0-50.0); HEMOGLOBIN 11.8 G/DL (12.5-16.6); MCV 86.8 FL (86-99)
[2018-03-10 20:22] VITALS: BP 133/82
[2018-03-11 00:17] VITALS: BP 121/52
[2018-03-11 00:53] LABS: HEMATOCRIT 36.6 % (38.0-50.0); HEMOGLOBIN 11.6 G/DL (12.5-16.6); MCV 87.4 FL (86-99)
[2018-03-11 04:58] VITALS: BP 103/62
[2018-03-11 06:21] LABS: BASOPHIL (%) 0.5 % (0-1); EOSINOPHIL (%) 0.4 % (0-5); HEMATOCRIT 35.5 % (38.0-50.0); HEMOGLOBIN 11.2 G/DL (12.5-16.6); IMMATURE GRANULOCYTE (%) 0.3 % (0.0-0.7); LYMPHOCYTE (%) 16.9 % (15-42); LYMPHOCYTE COUNT 1.3 K/uL (1.0-2.8); MCH 27.5 PG (29.0-34.0); MCHC 31.5 G/DL (30.0-36.0); MONOCYTE (%) 15.3 % (3-12); MONOCYTE COUNT 1.1 K/uL (0-0.8); NEUTROPHIL (%) 66.6 % (45-76); PLATELET COUNT 300 K/uL (156-360); RBC DIS.WIDTH-CV 14.2 % (11.8-14.6); RBC DIS.WIDTH-SD 45.1 % (39-53); RED BLOOD COUNT 4.08 M/uL (4.00-5.50); WHITE BLOOD COUNT 7.5 K/uL (4.1-10.2)
[2018-03-11 06:51] LABS: CHLORIDE 116 MEQ/L (99-109); GFR ESTIMATE (CALCULATED) > 59 mL/min/ (58.99-99999); GLUCOSE 117 mg/dL (70-99); POTASSIUM 3.9 MEQ/L (3.7-5.4); UREA NITROGEN (BUN) 27 mg/dL (9-23)
[2018-03-11 06:52] LABS: SODIUM 146 MEQ/L (136-147)
[2018-03-11 08:25] VITALS: BP 113/57
[2018-03-11 12:49] VITALS: BP 110/58
[2018-03-11 13:14] LABS: HEMATOCRIT 36.6 % (38.0-50.0); HEMOGLOBIN 11.4 G/DL (12.5-16.6); MCV 86.3 FL (86-99)
[2018-03-11 16:48] VITALS: BP 148/88
[2018-03-11 22:53] VITALS: BP 128/62
[2018-03-12 06:01] LABS: BASOPHIL (%) 0.4 % (0-1); EOSINOPHIL (%) 2.2 % (0-5); EOSINOPHIL COUNT 0.2 K/uL (0-0.3); HEMATOCRIT 31.2 % (38.0-50.0); HEMOGLOBIN 9.8 G/DL (12.5-16.6); IMMATURE GRANULOCYTE (%) 0.4 % (0.0-0.7); LYMPHOCYTE (%) 15.1 % (15-42); LYMPHOCYTE COUNT 1.1 K/uL (1.0-2.8); MCH 27.3 PG (29.0-34.0); MCHC 31.4 G/DL (30.0-36.0); MCV 86.9 FL (86-99); MONOCYTE (%) 16.2 % (3-12); MONOCYTE COUNT 1.2 K/uL (0-0.8); NEUTROPHIL (%) 65.7 % (45-76); NEUTROPHIL COUNT 4.8 K/uL (1.8-6.4); PLATELET COUNT 288 K/uL (156-360); RBC DIS.WIDTH-CV 14.2 % (11.8-14.6); RBC DIS.WIDTH-SD 45.2 % (39-53); RED BLOOD COUNT 3.59 M/uL (4.00-5.50); WHITE BLOOD COUNT 7.3 K/uL (4.1-10.2)
[2018-03-12 06:25] LABS: CHLORIDE 112 MEQ/L (99-109); GFR ESTIMATE (CALCULATED) > 59 mL/min/ (58.99-99999); GLUCOSE 89 mg/dL (70-99); POTASSIUM 3.4 MEQ/L (3.7-5.4); SODIUM 142 MEQ/L (136-147); UREA NITROGEN (BUN) 27 mg/dL (9-23)
[2018-03-12 07:30] VITALS: BP 109/65
[2018-03-12 17:02] VITALS: BP 134/57
[2018-03-12 22:55] VITALS: BP 113/86
[2018-03-13 07:16] LABS: BASOPHIL (%) 0.6 % (0-1); EOSINOPHIL (%) 2.7 % (0-5); EOSINOPHIL COUNT 0.2 K/uL (0-0.3); HEMATOCRIT 28.5 % (38.0-50.0); HEMOGLOBIN 9.2 G/DL (12.5-16.6); IMMATURE GRANULOCYTE (%) 0.4 % (0.0-0.7); LYMPHOCYTE (%) 17.7 % (15-42); LYMPHOCYTE COUNT 1.2 K/uL (1.0-2.8); MCH 27.5 PG (29.0-34.0); MCHC 32.3 G/DL (30.0-36.0); MCV 85.3 FL (86-99); MONOCYTE (%) 19.5 % (3-12); MONOCYTE COUNT 1.3 K/uL (0-0.8); NEUTROPHIL (%) 59.1 % (45-76); PLATELET COUNT 216 K/uL (156-360); RBC DIS.WIDTH-SD 43.9 % (39-53); RED BLOOD COUNT 3.34 M/uL (4.00-5.50); WHITE BLOOD COUNT 6.8 K/uL (4.1-10.2)
[2018-03-13 07:40] LABS: CHLORIDE 114 MEQ/L (99-109); GFR ESTIMATE (CALCULATED) > 59 mL/min/ (58.99-99999); GLUCOSE 109 mg/dL (70-99); POTASSIUM 3.3 MEQ/L (3.7-5.4); SODIUM 140 MEQ/L (136-147); UREA NITROGEN (BUN) 19 mg/dL (9-23)
[2018-03-13 08:26] VITALS: BP 130/70
[2018-03-13 16:21] VITALS: BP 140/78
[2018-03-13 21:29] VITALS: BP 131/69
[2018-03-14 00:10] VITALS: BP 130/64
[2018-03-14 07:05] LABS: CHLORIDE 112 MEQ/L (99-109); GFR ESTIMATE (CALCULATED) > 59 mL/min/ (58.99-99999); GLUCOSE 103 mg/dL (70-99); POTASSIUM 2.9 MEQ/L (3.7-5.4); SODIUM 139 MEQ/L (136-147); UREA NITROGEN (BUN) 12 mg/dL (9-23)
[2018-03-14 08:00] VITALS: BP 116/70
[2018-03-14 15:23] VITALS: BP 120/74
[2018-03-15 00:05] VITALS: BP 120/67
[2018-03-15 07:23] LABS: CHLORIDE 112 MEQ/L (99-109); POTASSIUM 3.4 MEQ/L (3.7-5.4); SODIUM 140 MEQ/L (136-147)
[2018-03-15 07:28] LABS: GFR ESTIMATE (CALCULATED) > 59 mL/min/ (58.99-99999); GLUCOSE 82 mg/dL (70-99); UREA NITROGEN (BUN) 11 mg/dL (9-23)
[2018-03-15 08:25] VITALS: BP 140/63
[2018-03-15 15:43] VITALS: BP 130/72
[2018-03-15] MEDS ORDERED: VANCOCIN 250 M250 MG PO (15:54)
[2018-03-15] MEDS ORDERED: K-DUR20 MEQ PO (15:55)
== END 2018-03-15 18:39 | disposition home health service (06) | DRG 699 ==
LOC: EME 11:34 → 2EAST 16:00 → EDOF 16:00 → ENRESERV 16:23 → 2EAST 18:19
PROVIDERS: Emergency Medicine; Internal Medicine; Internal Medicine Gastroenterology
DX: T83.511A Infection and inflammatory reaction due to indwelling urethral catheter, initial encounter (principal); N30.00 Acute cystitis without hematuria; A04.71 Enterocolitis due to Clostridium difficile, recurrent; Y73.1 Therapeutic (nonsurgical) and rehabilitative gastroenterology and urology devices associated with adverse incidents; G20 Parkinson's disease; I12.9 Hypertensive chronic kidney disease with stage 1 through stage 4 chronic kidney disease, or unspecified chronic kidney disease; N18.9 Chronic kidney disease, unspecified; E11.22 Type 2 diabetes mellitus with diabetic chronic kidney disease; E11.621 Type 2 diabetes mellitus with foot ulcer; L97.429 Non-pressure chronic ulcer of left heel and midfoot with unspecified severity; L98.429 Non-pressure chronic ulcer of back with unspecified severity; J43.9 Emphysema, unspecified; N31.9 Neuromuscular dysfunction of bladder, unspecified; N39.498 Other specified urinary incontinence; K21.9 Gastro-esophageal reflux disease without esophagitis; I25.10 Atherosclerotic heart disease of native coronary artery without angina pectoris; D64.9 Anemia, unspecified; N40.0 Benign prostatic hyperplasia without lower urinary tract symptoms; F32.9 Major depressive disorder, single episode, unspecified; Z16.24 Resistance to multiple antibiotics; I69.351 Hemiplegia and hemiparesis following cerebral infarction affecting right dominant side; I69.320 Aphasia following cerebral infarction; I25.2 Old myocardial infarction; Z98.61 Coronary angioplasty status; Z95.2 Presence of prosthetic heart valve; Z87.891 Personal history of nicotine dependence; Z87.01 Personal history of pneumonia (recurrent); Z74.01 Bed confinement status
CPT/HCPCS: 74230; 80048; 80053; 80170; 81003; 82948; 83605; 85014; 85018; 85025; 85027; 85610; 85730; 87040; 87077; 87086; 87186; 87493; 92610 GN; 92611 GN; 99281; 99285; C9113; J1580; J1650; J1815; J3480; J7030; J7050; S0028; S0030

== ENCOUNTER 2018-06-01 13:46 | Emergency (ER) | payer OTHER ==
[~2018-06-01] VITALS: Ht 175.3 cm; Wt 71.5 kg
[~2018-06-01 13:46] MED LIST changes: +CARBIDOPA-LEVO1 EAC8 PO; +K-DUR20 MEQ PO; +VANCOCIN 250 M250 MG PO
[2018-06-01 14:27] LABS: BASOPHIL (%) 0.9 % (0-1); BASOPHIL COUNT 0.1 K/uL (0-0.1); EOSINOPHIL (%) 2.5 % (0-5); EOSINOPHIL COUNT 0.2 K/uL (0-0.3); HEMOGLOBIN 10.4 G/DL (12.5-16.6); IMMATURE GRANULOCYTE (%) 0.4 % (0.0-0.7); LYMPHOCYTE (%) 26.7 % (15-42); MCH 26.2 PG (29.0-34.0); MCHC 31.5 G/DL (30.0-36.0); MCV 83.1 FL (86-99); MONOCYTE (%) 12.7 % (3-12); NEUTROPHIL (%) 56.8 % (45-76); NEUTROPHIL COUNT 4.3 K/uL (1.8-6.4); PLATELET COUNT 354 K/uL (156-360); RBC DIS.WIDTH-SD 45.7 % (39-53); RED BLOOD COUNT 3.97 M/uL (4.00-5.50); WHITE BLOOD COUNT 7.5 K/uL (4.1-10.2)
[2018-06-01 14:36] LABS: ALBUMIN 2.9 g/dL (3.2-4.8); CHLORIDE 108 mEq/L (99-109); POTASSIUM 3.2 mEq/L (3.7-5.4); SODIUM 140 mEq/L (136-147)
[2018-06-01 14:39] LABS: GLUCOSE 109 mg/dL (70-99); INTER. NORMALIZED RATIO 1.1
[2018-06-01 14:40] LABS: TOTAL BILIRUBIN 0.4 mg/dL (0.0-1.0)
[2018-06-01 14:42] LABS: ALKALINE PHOSPHATASE 82 IU/L (3-129); CREATININE 0.8 mg/dL (0.6-1.3); GFR ESTIMATE (CALCULATED) > 59 mL/min/ (58.99-99999); PTT 29.8 SEC (25-37)
[2018-06-01 14:43] LABS: UREA NITROGEN (BUN) 25 mg/dL (9-23)
[2018-06-01 14:44] LABS: AST (GOT) 7 IU/L (2-34); DIRECT BILIRUBIN 0.1 mg/dL (0.0-0.3)
[2018-06-01 14:45] LABS: ALT (GPT) < 3 IU/L (3-49)
[2018-06-01 14:48] LABS: TROP-I INTERPRETATION NEGATIVE; TROPONIN-I < 0.01 ng/mL (0.0-0.30)
[2018-06-01 16:53] LABS: APPEARANCE SL.HAZY ((CLEAR)); BILIRUBIN NEGATIVE; BLOOD SMALL; COLOR YELLOW ((YELLOW)); GLUCOSE (STRIP) NEGATIVE; KETONES 5; LEUKOCYTES LARGE; NITRITE NEGATIVE; PROTEIN (STRIP) 100; SPECIFIC GRAVITY 1.025 (1.000-1.030); UROBILINOGEN 0.2 MG/DL (0.2-1.0)
[2018-06-01 16:59] LABS: BACTERIA RARE /HPF; EPITHELIAL CELLS NONE SEEN /HPF; MUCUS TRACE /LPF; UCUL ADDED? YES; WHITE BLOOD CELLS TNTC /HPF (0-5)
[2018-06-01] MEDS ORDERED: CEFTIN250 MG PO (17:40)
[2018-06-01 18:28] VITALS: BP 116/75
== END 2018-06-01 19:19 | disposition home or self-care (01) ==
LOC: EME 13:46
PROVIDERS: Emergency Medicine
DX: N39.0 Urinary tract infection, site not specified (principal); G20 Parkinson's disease; E78.5 Hyperlipidemia, unspecified; I13.0 Hypertensive heart and chronic kidney disease with heart failure and stage 1 through stage 4 chronic kidney disease, or unspecified chronic kidney disease; I50.9 Heart failure, unspecified; N18.9 Chronic kidney disease, unspecified; J44.9 Chronic obstructive pulmonary disease, unspecified; K21.9 Gastro-esophageal reflux disease without esophagitis; I25.10 Atherosclerotic heart disease of native coronary artery without angina pectoris; I25.2 Old myocardial infarction; F32.9 Major depressive disorder, single episode, unspecified; Z74.01 Bed confinement status; Z86.73 Personal history of transient ischemic attack (TIA), and cerebral infarction without residual deficits; Z87.440 Personal history of urinary (tract) infections; Z87.891 Personal history of nicotine dependence; Z90.49 Acquired absence of other specified parts of digestive tract
CPT/HCPCS: 71045; 80048; 80076; 81003; 84484; 85025; 85610; 85730; 93005; 99281; 99285; J0696; J7040